=== PATIENT | female | born 1935 | race Caucasian/White ===

== ENCOUNTER 2020-06-09 13:59 | Outpatient (CLI) | payer OTHER, SELFPAY ==
--- NOTE | ~2020-06-09 | MM_ITS ---
EXAMINATION: MM screening jazmín LT w gideon HISTORY: Screening mammogram TECHNIQUE: Craniocaudal and mediolateral oblique 3-D tomosynthesis images were obtained and synthetic 2-D images were generated. CAD analysis was submitted and interpreted. COMPARISON: 04/20/2019 left digital mammogram 04/14/2018, 04/11/2017 bilateral digital screening mammogram examinations BREAST PARENCHYMAL COMPOSITION: There are scattered areas of fibroglandular density. FINDINGS: There are multiple benign calcifications. Arterial calcifications are noted. No suspicious mass or architectural distortion or significant new or developing density is noted. There is no evide nce of suspicious mass, calcification, or architectural distortion to suggest malignancy in either br east. There has been no suspicious interval change. IMPRESSION: 1. No mammographic evidence of malignancy. 2. Recommend routine screening mammography in one year. BI-RADS Category 2: Benign finding(s). Reviewed, dictated and finalized at location A.
== END 2020-06-09 14:00 | disposition home or self-care (01) ==
LOC: ANHIMG 14:02
PROVIDERS: PCP Family Medicine; Visit Provider Internal Medicine Medical Oncology
DX: Z12.31 Encounter for screening mammogram for malignant neoplasm of breast (principal)
CPT/HCPCS: 77063; 77067

== ENCOUNTER 2020-12-01 14:43 | Outpatient (CLI) | payer OTHER, MEDICARE, SELFPAY | END 2020-12-01 14:44 | disposition home or self-care (01) | LOC: ANHCOVIDVC 14:44 | PROVIDERS: PCP Family Medicine | DX: Z23 Encounter for immunization (principal) | CPT/HCPCS: 0001A; 91300 ==

== ENCOUNTER 2020-12-22 14:44 | Outpatient (CLI) | payer OTHER, MEDICARE, SELFPAY | END 2020-12-22 14:45 | disposition home or self-care (01) | LOC: ANHCOVIDVC 14:44 | PROVIDERS: PCP Family Medicine | DX: Z23 Encounter for immunization (principal) | CPT/HCPCS: 0002A; 91300 ==

== ENCOUNTER 2021-06-19 10:32 | Outpatient (CLI) | payer OTHER, SELFPAY ==
--- NOTE | ~2021-06-19 | MM_ITS ---
EXAMINATION: MM screening jazmín LT w gideon HISTORY: Screening mammogram TECHNIQUE: Craniocaudal and mediolateral oblique 3-D tomosynthesis images were obtained and synthetic 2-D images were generated. CAD analysis was submitted and interpreted. COMPARISON: 06/09/2020, 04/20/2019 left digital mammogram examinations BREAST PARENCHYMAL COMPOSITION: There are scattered areas of fibroglandular density. FINDINGS: Scattered benign calcifications. There is no evidence of suspicious mass, calcification, or architectural distortion to suggest malignancy in either breast. There has been no suspicious interv al change. IMPRESSION: 1. No mammographic evidence of malignancy. 2. Recommend routine screening mammography in one year. BI-RADS Category 2: Benign finding(s). Reviewed, dictated and finalized at location A.
== END 2021-06-19 10:33 | disposition home or self-care (01) ==
LOC: ANHIMG 10:36
PROVIDERS: PCP Family Medicine; Visit Provider Internal Medicine Medical Oncology
DX: Z12.31 Encounter for screening mammogram for malignant neoplasm of breast (principal)
CPT/HCPCS: 77063; 77067

== ENCOUNTER 2022-06-23 14:40 | Outpatient (CLI) | payer OTHER, SELFPAY ==
--- NOTE | ~2022-06-23 | MM_ITS ---
EXAMINATION: MM screening jazmín LT w gideon HISTORY: Screening mammogram TECHNIQUE: Craniocaudal and mediolateral oblique 3-D tomosynthesis images were obtained and synthetic 2-D images were generated. CAD analysis was submitted and interpreted. COMPARISON: 06/15/2021, 06/09/2020, 04/20/2019 left screening mammogram examinations BREAST PARENCHYMAL COMPOSITION: There are scattered areas of fibroglandular density. FINDINGS: Status post right mastectomy for breast cancer. Scattered benign calcifications of the left breast. There is no evidence of suspicious mass, calcific ation, or architectural distortion to suggest malignancy in either breast. There has been no suspicio us interval change. IMPRESSION: 1. No mammographic evidence of malignancy. 2. Recommend routine screening mammography in one year. BI-RADS Category 2: Benign finding(s). Reviewed, dictated and finalized at location A.
== END 2022-06-23 14:41 | disposition home or self-care (01) ==
PROVIDERS: PCP Family Medicine; Visit Provider Family Medicine
DX: Z12.31 Encounter for screening mammogram for malignant neoplasm of breast (principal)
CPT/HCPCS: 77063; 77067

== ENCOUNTER 2022-09-14 08:34 | Outpatient (CLI) | payer OTHER, SELFPAY ==
[2022-09-14 09:13] LABS: Hematocrit 45.5 % (37.0-47.0); Mean Corpuscular Hemoglobin 33.1 pg (26-34); Mean Corpuscular Volume 100.4 fl (80-100); Mean Platelet Volume 8.8 fl (7.4-10.4); Platelet Count Result 210 k/mm3 (150-375); Red Blood Count 4.53 M/mm3 (4.2-5.4); Red Cell Distribution Width 13.3 % (11.5-14.5); White Blood Count 6.1 K/mm3 (4.5-10.0)
[2022-09-14 09:13] LABS: Add Urine Microscopic? YES; Appearance Urine Clear (Clear); Bilirubin Urine Negative (Negative); Blood Urine Negative (Negative); Color Urine Light Yellow (Yellow); Glucose Urine UA Negative (Negative); Ketones Urine Negative (Negative); Leukocyte Esterase Ur 1+ LEU/UL (NEGATIVE); Nitrate Urine Negative (Negative); Protein Urine Negative (Negative); Urobilinogen Urine 0.2 mg/dL (<2.0)
[2022-09-14 09:21] LABS: Alanine Aminotransferase 21 U/L (6-35); Albumin Level 4.3 g/dL (3.5-5.1); Alkaline Phosphatase 63 U/L (38-126); Anion Gap 4 mmol/L (8-16); Aspartate Amino Transferase 28 U/L (14-36); Bilirubin,Total 0.8 mg/dL (0.2-1.3); Blood Urea Nitrogen 12 mg/dL (7-17); Calcium 9.5 mg/dL (8.4-10.2); Carbon Dioxide 29 mmol/L (22-30); Chloride 102 mmol/L (98-107); Cholesterol 178 mg/dL (0-200); Estimated Glomerular Filt Rate 60; Glucose 195 mg/dL (65-110); HDL Direct 63 mg/dL; Potassium 4.3 mmol/L (3.4-5.0); Sodium 135 mmol/L (137-145); Triglycerides 99 mg/dL (<150)
[2022-09-14 09:23] LABS: Mucus Urine Rare /lpf; RBC Urine 0-2 /hpf (0-2); Squamous Epithelial Cell Urine Few /hpf (Few); WBC Urine 0-3 /hpf (0-3)
[2022-09-14 09:32] LABS: LDL Cholesterol Direct 79 mg/dL
[2022-09-14 10:17] LABS: Creatinine Urine 76.7 mg/dL
[2022-09-14 10:21] LABS: Microalbumin Urine Random 6.9 mg/L (0-16.7)
[2022-09-14 10:36] LABS: Hemoglobin A1C 6.2 % (<5.7)
== END 2022-09-14 08:35 | disposition home or self-care (01) ==
LOC: ANHLAB 08:35
PROVIDERS: PCP Family Medicine; Visit Provider Family Medicine
DX: R53.83 Other fatigue (principal); E11.9 Type 2 diabetes mellitus without complications; E78.5 Hyperlipidemia, unspecified; I10 Essential (primary) hypertension
CPT/HCPCS: 36415; 80053; 80061; 81001; 82043; 83036; 84443; 85027

== ENCOUNTER 2022-12-19 10:48 | Emergency (ER) | payer OTHER, SELFPAY ==
--- NOTE | ~2022-12-19 | CT_ITS ---
EXAMINATION: CT abdomen pelvis w con INDICATION: Left lower quadrant abdominal pain TECHNIQUE: Computed tomographic images of the abdomen and pelvis were obtained after the administrati on of 100 cc of Omnipaque 350 intravenous contrast. The dose-length product (DLP) was 667.99 mGy-cm. Automated exposure control and iterative reconstruction technique were employed. COMPARISON: 03/06/2014 FINDINGS: Minimal dependent atelectasis is present in the lung bases. The heart size is normal. There are changes of right mastectomy. There is a small sliding hiatal area. Stones are present in the non distended gallbladder. The liver, spleen, pancreas, and adrenal glands are normal. The kidneys are un remarkable. There is calcified atherosclerosis of the aorta and many of the other arteries.. There is colonic diverticulosis. There is wall thickening with inflammatory change in the proximal sigmoid co ginny. There is no evidence of perforation. There are no dilated loops of bowel. There are changes of b ilateral hip arthroplasty. IMPRESSION: 1. Uncomplicated sigmoid diverticulitis. 2. Cholelithiasis without evidence of cholecystitis. Reviewed, dictated and finalized at location A.
[2022-12-19 10:56] VITALS: BP 151/57; PULSE 81; RESP 18; O2SAT 99
[2022-12-19 11:27] LABS: Basophils Absolute Auto 0.1 K/mm3 (0.0-0.1); Basophils Percent Auto 0.5 % (0.2-1.2); Eosinophils Absolute Auto 0.1 K/mm3 (0-0.3); Eosinophils Percent Auto 0.7 % (0-4.4); Hematocrit 43.7 % (37.0-47.0); Hemoglobin 15.1 g/dL (12.0-15.0); Immature Granulocyte Absolute 0.03 K/mm3 (0.00-0.031); Immature Granulocyte Percent A 0.3 % (0-0.5); Lymphocytes Absolute Auto 2.12 K/mm3 (0.9-3.2); Lymphocytes Percent Auto 19.8 % (18.3-44.2); Mean Corpuscular HGB Conc 34.6 g/dl (32-36); Mean Corpuscular Hemoglobin 33.8 pg (26-34); Mean Corpuscular Volume 97.8 fl (80-100); Mean Platelet Volume 8.8 fl (7.4-10.4); Monocytes Absolute Auto 1.1 K/mm3 (0.1-0.6); Monocytes Percent Auto 9.9 % (2.6-8.5); Neutrophils Absolute Auto 7.4 K/mm3 (1.3-6.7); Neutrophils Percent Auto 68.8 % (45.5-73.1); Platelet Count Result 212 k/mm3 (150-375); Red Blood Count 4.47 M/mm3 (4.2-5.4); Red Cell Distribution Width 13.3 % (11.5-14.5); White Blood Count 10.7 K/mm3 (4.5-10.0)
[2022-12-19 11:37] LABS: Alanine Aminotransferase 19 U/L (6-35); Albumin Level 4.4 g/dL (3.5-5.1); Alkaline Phosphatase 59 U/L (38-126); Anion Gap 7 mmol/L (8-16); Aspartate Amino Transferase 22 U/L (14-36); Bilirubin,Total 2.2 mg/dL (0.2-1.3); Blood Urea Nitrogen 13 mg/dL (7-17); Calcium 9.6 mg/dL (8.4-10.2); Carbon Dioxide 24 mmol/L (22-30); Chloride 104 mmol/L (98-107); Estimated CRCL calculation 38 ml/min; Estimated Glomerular Filt Rate > 60; Glucose 167 mg/dL (65-110); Lipase 101 U/L (23-300); Potassium 4.1 mmol/L (3.4-5.0); Sodium 135 mmol/L (137-145)
[2022-12-19 12:00] VITALS: BP 154/74; PULSE 73; RESP 16; O2SAT 99
[2022-12-19 12:29] LABS: Appearance Urine Cloudy (Clear); Bacteria Urine 1+ /hpf; Bilirubin Urine Negative (Negative); Blood Urine Trace (Negative); Color Urine Dark Yellow (Yellow); Glucose Urine UA Negative (Negative); Ketones Urine Trace mg/dL (Negative); Leukocyte Esterase Ur 2+ LEU/UL (Negative); Nitrate Urine Negative (Negative); Protein Urine Trace mg/dL (Negative); Specific Grav Ur 1.017 (1.001-1.035); Squamous Epithelial Cell Urine Many /hpf (Few); pH Urine 6.5 (5.0-9.0)
[2022-12-19 12:32] LABS: Add Urine Microscopic? YES
[2022-12-19] MEDS: fentaNYL CITRATE INJ (*CRX) 100 MCG/2 ML VIAL 50 MCG IV PUSH (12:52)
--- NOTE | 2022-12-19 13:07 | ED.ABDPAIN ---
HPI - Abdominal Pain General Chief Complaint: Abdominal Pain Stated Complaint: abd pain Time Seen by Provider: 12/19/22 11:59 History of Present Illness HPI narrative: This is an 87-year-old female with past medical history of hypertension and anxiety, presents the emergency department complaining of left-sided abdominal pain for the past day. She states the pain began last night. At maximum it was rated 10/10 and described as cramping and sharp, occurring in waves. She states it initially felt as though it is in the flank and appears to be moving towards the anterior abdomen. She denies associated fever, chills, nausea or vomiting or bleeding from any source. Related Data Allergies Allergy/AdvReac Type Severity Reaction Status Date / Time adhesive tape Allergy Unknown Rash Verified 12/21/22 07:38 codeine Allergy Unknown Headache Verified 12/21/22 07:38 morphine Allergy Unknown Headache Verified 12/21/22 07:38 Review of Systems Review of Systems: CONSTITUTIONAL: Denies fever, chills, or sweats. CARDIOVASCULAR: Denies chest pain, palpitations, or edema. RESPIRATORY: Denies cough or dyspnea. GASTROINTESTINAL: Left-sided abdominal pain denies nausea, vomiting, or diarrhea. GENITOURINARY: Denies dysuria or hematuria. SKIN: Denies rash or itching. MUSCULOSKELETAL: Denies back pain, joint pain, or myalgia. NEUROLOGIC: Denies headache, numbness, dizziness, or weakness. PSYCHIATRIC: Denies anxiety or depression. [facility] Past Medical History Medical History History of breast cancer Social History Social History Smoking status: Never smoker Second hand tobacco smoke exposure: No Alcohol intake: current Drinks per week: 10 Substance use: never Substance use type: does not use Living arrangements: with family Occupation/Education: retired Gender identity (if verbalized by the patient): Female Exam Narrative: GENERAL: Well-appearing, well-nourished, and in no acute distress. HEAD: Normocephalic, atraumatic. EYES: PERRLA and EOMI. ENT: Nares clear, no rhinorrhea or epistaxis. Mucous membranes moist. Oropharynx without tonsillar hypertrophy exudate or other lesions. CHEST: Clear to auscultation. No respiratory distress. No wheezes rales or rhonchi HEART: Regular rate and rhythm. No murmur heard. Normal peripheral pulses. ABDOMEN: Soft, tender to palpation in the left lower quadrant without rebound or guarding, nondistended, normal active bowel sounds. No CVA tenderness to palpation EXTREMITIES: Normal range of motion. No edema. SKIN: Warm, dry, no rash. NEURO: No focal deficits. Alert and oriented x3. PSYCH: Normal mood and affect. Course Course Emergency Course: 14:30 - CT demonstrates sigmoid diverticulitis with out abscess or perforation. On reevaluation, the patient states her pain is returning but is still manageable. White blood cell count within normal limits at 9.8. Chemistries demonstrate mild hyponatremia at 137 but are otherwise unremarkable. UA demonstrates small amount of RBCs with epithelial cells. Shared decision making conversation had with the patient. We discussed treatment options including admission versus oral medications at home and close primary care follow-up. The patient is comfortable with discharge, oral antibiotics and pain management. Discussed return and emergent precautions including signs/symptoms of sepsis and acute abdomen. The patient voiced understanding is comfortable with the plan. All questions answered to her satisfaction. Vital Signs Vital signs: Vital Signs Pulse Rate 81 12/19/22 10:56 Respiratory Rate 18 12/19/22 10:56 Blood Pressure 151/57 H 12/19/22 10:56 Pulse Oximetry 99 12/19/22 10:56 Pulse Rate 60 12/19/22 15:06 Respiratory Rate 18 12/19/22 15:06 Blood Pressure 121/61 12/19/22 15:06 Pulse Oximetry 99 12/19/22 15:06
[2022-12-19 13:16] LABS: Basophils Percent Auto 0.4 % (0.2-1.2); Eosinophils Percent Auto 0.4 % (0-4.4); Hematocrit 42.3 % (37.0-47.0); Hemoglobin 14.6 g/dL (12.0-15.0); Immature Granulocyte Absolute 0.03 K/mm3 (0.00-0.031); Immature Granulocyte Percent A 0.3 % (0-0.5); Lymphocytes Percent Auto 17.4 % (18.3-44.2); Mean Corpuscular HGB Conc 34.5 g/dl (32-36); Mean Corpuscular Volume 98.4 fl (80-100); Mean Platelet Volume 9.1 fl (7.4-10.4); Monocytes Absolute Auto 1.1 K/mm3 (0.1-0.6); Monocytes Percent Auto 10.8 % (2.6-8.5); Neutrophils Absolute Auto 6.9 K/mm3 (1.3-6.7); Neutrophils Percent Auto 70.7 % (45.5-73.1); Platelet Count Result 195 k/mm3 (150-375); Red Cell Distribution Width 13.2 % (11.5-14.5); White Blood Count 9.8 K/mm3 (4.5-10.0)
[2022-12-19] MEDS: oxyCODONE/ACETAMINOPHEN (*CRX) 5-325 MG TABLET 1 TABLET PO (15:02)
[2022-12-19 15:06] VITALS: BP 121/61; PULSE 60; RESP 18; O2SAT 99
== END 2022-12-19 15:07 | disposition home or self-care (01) ==
PROVIDERS: Emergency Medicine; Emergency Provider Preventive Medicine Aerospace Medicine; PCP Family Medicine
DX: K57.32 Diverticulitis of large intestine without perforation or abscess without bleeding (principal); I10 Essential (primary) hypertension; K80.20 Calculus of gallbladder without cholecystitis without obstruction
CPT/HCPCS: 36415; 74177; 80053; 81001; 83690; 85025; 87086; 87088; 96374; 99284; A9270; J3010; Q9967

== ENCOUNTER 2023-07-27 13:54 | Outpatient (CLI) | payer OTHER, SELFPAY ==
--- NOTE | ~2023-07-27 | MM_ITS ---
EXAMINATION: MM screening jazmín LT w gideon HISTORY: Screening left mammogram, history of right mastectomy TECHNIQUE: Craniocaudal and mediolateral oblique 3-D tomosynthesis images were obtained and synthetic 2-D images were generated. CAD analysis was submitted and interpreted. COMPARISON: 06/23/2022, 06/19/2021, 06/09/2020 BREAST PARENCHYMAL COMPOSITION: There are scattered areas of fibroglandular density. FINDINGS: Scattered benign-appearing calcifications are present. No suspicious mass, calcification, o r architectural distortion are identified to suggest malignancy. There has been no suspicious interva l change. IMPRESSION: 1. No mammographic evidence of malignancy. 2. Recommend routine screening mammography while the patient remains in good health. BI-RADS Category 2: Benign finding(s). Reviewed, dictated and finalized at location A. IMPRESSION: 1. No mammographic evidence of malignancy. 2. Recommend routine screening mammography while the patient remains in good he alth. BI-RADS Category 2: Benign finding(s).
== END 2023-07-27 13:55 | disposition home or self-care (01) ==
LOC: ANHIMG 13:56
PROVIDERS: PCP Family Medicine; Visit Provider Family Medicine
DX: Z12.31 Encounter for screening mammogram for malignant neoplasm of breast (principal)
CPT/HCPCS: 77063; 77067

== ENCOUNTER → 2023-08-31 11:08 | Outpatient (CLI) | payer OTHER, SELFPAY ==
--- NOTE | ~2023-08-31 | DEXA_ITS ---
Bone Density Report Name: WM MURRIETA Age: 87 Sex: Female Ethnicity: White Date of : 1935 Indication: postmenopausal; screening for osteoporosis; height loss; hysterectomy; Referring Provider: [address] Study: Bone densitometry was performed. Exam Date: August 31, 2023 Accession number: [id number] Bone Density: Region BMD T-score Z-score Classification AP Spine (L1, L4) 1.008 -0.3 2.6 Normal World Health Organization criteria for BMD impression classify patients as: Normal (T-score at or above -1.0), Osteopenia (T-score between -1.0 and -2.5), or Osteoporosis (T-score at or below -2.5). Previous Exams: Region Exam Age BMD T-score BMD Change BMD Change Date g/cm2 vs Baseline vs Previous AP Spine(L1, L4) 08/31/2023 87 1.008 -0.3 -0.088 0.003 05/15/2007 71 1.004 -0.3 -0.091 -0.091 10/03/2003 67 1.095 0.5 *Denotes significance at 95% confidence level, LSC for AP Spine = 0.022 g/cm2 Clinical Information Provided by Patient: Has the following medical conditions: Hysterectomy Patient maximum height was 65 Menopause Age: 41 No regular weight bearing exercise Drinks caffeinated beverages Onset of menses at age 15 Number of children 8 Impression: The patient has normal bone mass. No significant bone loss was observed. Discussion: LOW RISK OF FRACTURE; BONE DENSITY IS WELL ABOVE THE MINIMUM DESIRABLE LEVEL AND ABOVE AVERAGE FOR AGE AND SEX AT ALL SKELETAL SITES TESTED. This person's bone density is above expected limits for age and sex. This is rarely clinically significant, but should be pursued if there are significant musculoskeletal complaints. The patient should follow a healthful lifestyle (good nutrition with adequate calcium and vitamin D, and appropriate weight-bearing exercise). Follow-Up: Consider repeating this study in 5 years or sooner if there is some new clinical indication. Reported by: [facility] on 08/31/2023 11:16:00 AM. Reviewed, dictated and finalized at location ANaomi WHITEHEAD
== END ==
PROVIDERS: PCP Family Medicine; Visit Provider Family Medicine
DX: Z78.0 Asymptomatic menopausal state (principal)
CPT/HCPCS: 77080

== ENCOUNTER 2023-11-21 08:21 | Emergency (ER) | payer OTHER, SELFPAY ==
[2023-11-21] VITALS (41 sets, daily range): BP systolic 97–155; BP diastolic 59–134; PULSE 61–86; RESP 17–31; TEMP 36.4–36.6; O2SAT 92–99
--- NOTE | ~2023-11-21 | CT_ITS ---
EXAMINATION: CT thoracic spine wo con DATE: 11/21/2023 09:01 INDICATION: Bilateral shoulder pain. Fall. TECHNIQUE: Computed tomography (CT) of the thoracic spine was performed without intravenous contrast. Automated exposure control and iterative reconstruction technique were employed. The dose-length pro duct was 715.42 mGy-cm. COMPARISON: None FINDINGS: Calcified right hilar and mediastinal lymph nodes are consistent with old granulomatous dis ease. There is a small sliding hiatal hernia. Cardiomegaly is noted. There are coronary artery calcif ications. There is 8 degrees dextrocurvature of upper thoracic spine and 7 degrees levocurvature of l ower thoracic spine. There is kyphosis of thoracic spine. There is mild chronic anterior wedging of T 8-T10 vertebral bodies. There are Schmorl's nodes at multiple levels. There is mildly decreased disc height at multiple levels. There is moderately decreased disc height at T7-T8 and T8-T9 and severely decreased disc height at T10-T11 and T11-T12. There are bridging endplate osteophytes from T4 to T10, consistent with diffuse idiopathic skeletal hyperostosis (DISH). There is mild central canal stenosi s at T10-T11 and T11-T12. There is multilevel facet joint osteoarthritis, severe in upper thoracic sp ine. There is ankylosis of the facet joints at T3-T4 bilaterally and at T7-T8 on the left. There is m ultilevel mild neural foraminal stenosis. IMPRESSION: 1. No fracture. 2. Severe thoracic spondylosis. 3. DISH. 4. Small sliding hiatal hernia. Reviewed, dictated and finalized at location A. [employer]
--- NOTE | ~2023-11-21 | CT_ITS ---
EXAMINATION: CT brain wo con INDICATION: Headache COMPARISON: None TECHNIQUE: Standard unenhanced head CT. The dose-length product (DLP) was 681.00 mGy-cm. The mA was a djusted according to patient size. Iterative reconstruction technique was employed. FINDINGS: No acute intraparenchymal hemorrhage. No evidence of mass lesion. No evidence of acute infa rction. 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 There is mild periventricular and subcortical hypodensity probably related to small vessel ischemic disease. There is mild prominence o f the sulci and ventricles related to cerebral atrophy. Intracranial calcified cerebral atheroscleros is is noted. No extra-axial collections. No mass effect or midline shift. Changes in the globes are l ikely from ocular lens surgery. There is a small right mastoid effusion. IMPRESSION: 1. No acute intracranial abnormality. 2. Age related findings. Reviewed, dictated and finalized at location B. [employer]
--- NOTE | ~2023-11-21 | CT_ITS ---
EXAMINATION: CT cervical spine wo con DATE: 11/21/2023 09:01 INDICATION: Neck injury. TECHNIQUE: Computed tomography (CT) of the cervical spine was performed without intravenous contrast. Automated exposure control and iterative reconstruction technique were employed. The dose-length pro duct was 165.77 mGy-cm. COMPARISON: None FINDINGS: There is a 12 mm nodule in right thyroid lobe, likely not clinically significant. There is 14 degrees levoscoliosis of cervical spine. Vertebral body heights are normal. There is mildly decrea sed disc height at C5-C6 and moderately decreased disc height at C6-C7. The following disc levels are specifically discussed: C2-C3: There is no uncovertebral joint osteoarthritis. There is moderate right and mild left facet nirmal int osteoarthritis. There is no neural foraminal stenosis. There is no central canal stenosis. C3-C4: There is no uncovertebral joint osteoarthritis. There is moderate right and severe left facet joint osteoarthritis. There is mild left neural foraminal stenosis. There is no central canal stenosi s. C4-C5: There is no uncovertebral joint osteoarthritis. There is severe bilateral facet joint osteoart hritis. There is mild bilateral neural foraminal stenosis. There is no central canal stenosis. C5-C6: There is severe bilateral uncovertebral joint osteoarthritis. There is severe bilateral facet joint osteoarthritis. There is mild bilateral neural foraminal stenosis. There is mild central canal stenosis. C6-C7: There is moderate right and severe left uncovertebral joint osteoarthritis. There is severe bi lateral facet joint osteoarthritis. There is mild bilateral neural foraminal stenosis. There is mild central canal stenosis. C7-T1: There is mild bilateral uncovertebral joint osteoarthritis. There is severe bilateral facet nirmal int osteoarthritis. There is mild bilateral neural foraminal stenosis. There is no central canal sten osis. IMPRESSION: 1. No fracture. 2. Moderate cervical spondylosis. 3. Cervical levoscoliosis. Reviewed, dictated and finalized at location A. [employer]
--- NOTE | 2023-11-21 08:39 | ED.GENADULT ---
HPI - General Adult General Chief complaint: Extremity Injury, Upper Stated complaint: b/l shoulder pain Time Seen by Provider: 11/21/23 08:22 History of Present Illness HPI narrative: 88-year-old female presented to the emergency department for evaluation of head neck and shoulder pain. The patient states that she was at a restaurant approximately 1 month ago when she pushed her chair back and instead of pushing herself away from the table she fell backwards. Patient states that she has had worsening head neck and shoulder pain over the course of the last month. Patient was not evaluated the time of the injury and has not contacted her primary care physician for follow-up. Patient has been taking ibuprofen for pain control. Patient reports that the pain in her neck back and shoulders has worsened to the point where she cannot control it. Patient arrived to the emergency department by EMS. Related Data Allergies Allergy/AdvReac Type Severity Reaction Status Date / Time adhesive tape Allergy Unknown Rash Verified 11/21/23 08:38 codeine Allergy Unknown Headache Verified 11/21/23 08:38 morphine Allergy Unknown Headache Verified 11/21/23 08:38 lidocaine Allergy Unknown Verified 11/21/23 08:38 Review of Systems Review of Systems: All systems reviewed & are unremarkable except as noted in HPI and below PMFSH Past Medical History Medical History History of breast cancer Social History Social History Smoking status: Never smoker Second hand tobacco smoke exposure: No Alcohol intake: current Drinks per week: 10 Substance use: never Substance use type: does not use Living arrangements: with family Occupation/Education: retired Gender identity (if verbalized by the patient): Female Sexual Orientation (if Verbalized by the Patient): Straight or Heterosexual Exam Narrative: APPEARANCE: Uncomfortable with HEAD: normocephalic, atraumatic. EYES: PERRLA/EOMI, conjunctivae clear. NOSE: Normal no drainage EARS:TMS clear with good light reflex. THROAT: Pharynx clear, no exudate. NECK: Supple. No adenopathy, no masses. RESPIRATORY: Airway patent, respirations nonlabored. Clear to auscultation bilaterally, no rales, rhonchi, wheezing. CARDIOVASCULAR: Regular rate and rhythm without murmurs rubs or gallops. ABDOMINAL: Soft, nontender, nondistended, normal bowel sounds MUSCULOSKELETAL: Tenderness to posterior head neck thoracic spine and bilateral shoulders NEURO: Alert. Cranial nerves II through XII intact. Grossly intact SKIN: Warm, dry. Normal Color Course Course Emergency Course: Patient did feel improved with treatment. Patient and family are comfortable with plan for discharge and close follow-up. Vital Signs Vital signs: Vital Signs Temperature 97.6 F 11/21/23 08:25 Pulse Rate 83 11/21/23 08:25 Respiratory Rate 20 11/21/23 08:25 Blood Pressure 155/134 H 11/21/23 08:25 Pulse Oximetry 97 11/21/23 08:25 Oxygen Delivery Room Air 11/21/23 08:25 Temperature 97.8 F 11/21/23 15:15 Pulse Rate 74 11/21/23 15:15 Respiratory Rate 20 11/21/23 15:15 Blood Pressure 129/70 11/21/23 15:15 Pulse Oximetry 96 11/21/23 15:15 Oxygen Delivery Room Air 11/21/23 08:25 Medical Decision Making MDM Narrative Medical decision making narrative: 88-year-old female presenting to the ED for evaluation worsening head neck back shoulder pain after a fall 1 month ago. Patient was provided medications for pain control. Imaging head neck spine were ordered. Patient and family are updated on the plan for treatment and workup. Patient is afebrile does have a minor leukocytosis of 10.6. Patient has a stable hemoglobin. No acute abnormalities on the patient's CMP patient's CK was not elevated. Patient had negative CTs of head cervical spine and thoracic spine. Patient d
[2023-11-21] MEDS: CYCLOBENZAPRINE HCL 10 MG TABLET PO (08:44)
[2023-11-21] MEDS: HYDROcodone/acetaminophen (*CRX) 5-325 MG TABLET 1 TAB PO (08:44)
--- NOTE | 2023-11-21 08:45 | PC.NURSE ---
Pt to CT via stretcher at this time
[2023-11-21 09:22] LABS: Basophils Absolute Auto 0.1 K/mm3 (0.0-0.1); Basophils Percent Auto 0.6 % (0.2-1.2); Eosinophils Absolute Auto 0.1 K/mm3 (0-0.3); Eosinophils Percent Auto 0.6 % (0-4.4); Hematocrit 40.3 % (37.0-47.0); Hemoglobin 13.8 g/dL (12.0-15.0); Immature Granulocyte Absolute 0.06 K/mm3 (0.00-0.031); Immature Granulocyte Percent A 0.6 % (0-0.5); Lymphocytes Absolute Auto 0.94 K/mm3 (0.9-3.2); Lymphocytes Percent Auto 8.9 % (18.3-44.2); Mean Corpuscular HGB Conc 34.2 g/dl (32-36); Mean Corpuscular Hemoglobin 32.5 pg (26-34); Mean Platelet Volume 8.6 fl (7.4-10.4); Monocytes Percent Auto 9.5 % (2.6-8.5); Neutrophils Absolute Auto 8.5 K/mm3 (1.3-6.7); Neutrophils Percent Auto 79.8 % (45.5-73.1); Platelet Count Result 336 k/mm3 (150-375); Red Blood Count 4.24 M/mm3 (4.2-5.4); Red Cell Distribution Width 11.9 % (11.5-14.5); White Blood Count 10.6 K/mm3 (4.5-10.0)
[2023-11-21] MEDS: fentaNYL CITRATE INJ (*CRX) 100 MCG/2 ML VIAL 50 MCG IV PUSH (09:59)
[2023-11-21 10:23] LABS: Alanine Aminotransferase 16 U/L (6-35); Albumin Level 3.5 g/dL (3.5-5.1); Alkaline Phosphatase 66 U/L (38-126); Anion Gap 5 mmol/L (8-16); Aspartate Amino Transferase 23 U/L (14-36); Bilirubin,Total 1.2 mg/dL (0.2-1.3); Blood Urea Nitrogen 12 mg/dL (7-17); Calcium 9.3 mg/dL (8.4-10.2); Carbon Dioxide 25 mmol/L (22-30); Chloride 100 mmol/L (98-107); Creatine Kinase < 20 U/L (30-135); Estimated CRCL calculation 48 ml/min; Estimated Glomerular Filt Rate > 60; Glucose 190 mg/dL (65-110); Potassium 4.1 mmol/L (3.4-5.0); Sodium 130 mmol/L (137-145)
[2023-11-21] MEDS: LORazepam INJ (*CRX) 2 MG/ML VIAL 1 MG IV PUSH (10:47)
== END 2023-11-21 15:32 | disposition home or self-care (01) ==
PROVIDERS: Emergency Provider Emergency Medicine; PCP Family Medicine
DX: S29.012A Strain of muscle and tendon of back wall of thorax, initial encounter (principal); M25.512 Pain in left shoulder; M25.511 Pain in right shoulder; Z85.3 Personal history of malignant neoplasm of breast; M47.812 Spondylosis without myelopathy or radiculopathy, cervical region; M47.814 Spondylosis without myelopathy or radiculopathy, thoracic region; M48.10 Ankylosing hyperostosis [Forestier], site unspecified; K44.9 Diaphragmatic hernia without obstruction or gangrene; W07.XXXA Fall from chair, initial encounter
CPT/HCPCS: 36415; 70450; 72125; 72128; 80053; 82550; 85025; 96374; 96375; 99284; A9270; J2060; J3010

== ENCOUNTER 2023-12-09 11:15 | Outpatient (RCR) | payer OTHER, SELFPAY ==
[2023-11-25 12:35] VITALS: BP_SYST 110; BP_SYST 90
--- NOTE | 2023-11-25 14:31 | OPREHPOC ---
Outpatient Therapy Plan of Care This is a Multidisciplinary Plan of Care that may contain components documented by all disciplines (PT, OT, and ST.) PT Problem 1 PT Problem #1 Knowledge Deficit PT Goal 1 Goal 1* indep with HEP 2* correct posture of shoulders with exercises PT Problem 2 PT Problem #2 Pain PT Goal 1 Goal decrease pain in both shoulders, to increase use of UE's for self care and home tasks: 1* R shoulder pain 3/10 at worst 2* L shoulder pain 2//10 at worst 3* self assessment Quick Dash self rating of 20% limitation in activity level PT Problem 3 PT Problem #3 Impaired Strength PT Goal 1 Goal increase strength of R and L shoulder, to improve use of arms with reaching into cabinets, cleaning home, cooking: standing active x 5 reps: 1* R flexion 130' 2* R abduction 90' 3* L flexion 130' 4* L abduction 100'
--- NOTE | 2023-11-25 14:31 | PTOPEVAL1 ---
Assessment and note entered by Laurie Bragg, PT Evaluation Information Assessment Status Evaluation Diagnosis pain in R and L shoulder, gait disturbance Onset Sep 2023 Subjective Information at restaurant, sitting in a tall chair, went to get up and chair went out from under her- fell forward and landed on both extended arms; pain in shoulders since; 11-21-23 could not get up out of her chair, son called ER, had CT scans of shoulders and trunk, and all tests were negative; shoulders are better today and can move a little more; can use arms but hurt and feel bruised. prior to fall--had full motion of shoulders; problems reaching up into cabinets; Activity: live alone; local family available if need assist; drives and does her shopping, cleaning and cooking; GOAL: do things with arms and not have pain, regular home chores; Reported Pain Level Pain Score Self Report Additional Pain Score Comments pain range in the past few days of both shoulders 2-5/10, but R tends to hurt more; achy pain in lateral upper humerus; R hand dominant increase pain: using arms decrease pain: muscle relaxer, pain meds and steroid pack ordered when went to ER 4 days ago-- they are helping; hot shower have not used heat/ice- instruct on PRN use with sleeping, able to sleep through the night, but some pain when wake up in AM Assessment PT Clinical Summary Abbie has the diagnosis of R and L shoulder pain . She reports onset after falling from standing, onto extended arms. Testing was negative. Pain has decreased with recent meds. She lives alone and had full motion and strength of her shoulders to do her self care and home tasks. Self assessment with Quick DASH is 41% limitation in activity level. With the evaluation: decreased R and L shoulder strength in all motions and decreased flexion and abduction ranges, R> L; poor standing position with forward head and rounded shoulders; tightness over both upper traps.
--- NOTE | 2023-12-13 17:33 | PCPTNOTE ---
Patient cancelled secondary to MRI scheduled.
--- NOTE | 2023-12-20 13:08 | PTOPDC ---
Assessment and note entered by Laurie Bragg, PT Evaluation Information Assessment Status Discharge - Pt Not Present Diagnosis pain in R and L shoulder, gait disturbance Onset Sep 2023 Assessment PT Clinical Summary Abbie has received 3 PT sessions. She then called last week and canceled all of her therapy appointments, stated she was having some other treatments and not able to do therapy at this time. Discharge PT. The goals were not addressed. Plan of Care PT Services Indicated No
== END 2023-12-20 15:08 | disposition home or self-care (01) ==
LOC: ANHPT 11:15
PROVIDERS: PCP Family Medicine; Visit Provider Family Medicine
DX: M25.511 Pain in right shoulder (principal); M25.512 Pain in left shoulder; R26.89 Other abnormalities of gait and mobility; R26.9 Unspecified abnormalities of gait and mobility
CPT/HCPCS: 97110; 97140; 97162; 97530

== ENCOUNTER 2023-12-13 08:52 | Outpatient (CLI) | payer OTHER, SELFPAY ==
--- NOTE | ~2023-12-13 | XR_ITS ---
Right Shoulder Technique: AP and scapular Y views were obtained. Clinical History: Pain Findings: No fracture or dislocation is seen. Osseous alignment is anatomic. There is moderate glenoh umeral joint degenerative change and moderate AC joint degenerative change.. Soft tissues are unremar kable. Impression: Moderate degenerative changes, as above. Reviewed, dictated and finalized at location . Impression: Moderate degenerative changes, as above.
--- NOTE | ~2023-12-13 | XR_ITS ---
Left Shoulder Technique: AP and scapular Y views were obtained. Clinical History: Pain Findings: No fracture or dislocation is seen. Osseous alignment is anatomic. There is moderate glenoh umeral joint degenerative change, and moderate AC joint degenerative change. Inferior humeral head sp ur present.. Soft tissues are unremarkable. Impression: Moderate degenerative changes, as above. Reviewed, dictated and finalized at location . Impression: Moderate degenerative changes, as above.
== END 2023-12-13 08:53 ==
LOC: MICIMG 08:53
PROVIDERS: PCP Family Medicine; Visit Provider Physician Assistant Medical
DX: M19.012 Primary osteoarthritis, left shoulder (principal); M19.011 Primary osteoarthritis, right shoulder
CPT/HCPCS: 73030

== ENCOUNTER 2024-08-14 20:35 | Observation (INO) | payer OTHER, SELFPAY ==
[2024-08-14] VITALS (12 sets, daily range): BP systolic 107–190; BP diastolic 68–140; PULSE 57–86; RESP 16–36; TEMP 36.1; O2SAT 80–100
--- NOTE | ~2024-08-14 | CT_ITS ---
EXAMINATION: CT abdomen pelvis w con DATE: 08/14/2024 22:46 INDICATION: Right lower quadrant abdominal pain. TECHNIQUE: Computed tomography (CT) of the abdomen and pelvis was performed with 100 mL Omnipaque 350 intravenous contrast. Automated exposure control and iterative reconstruction technique were employe d. The dose-length product was 433.86 mGy-cm. COMPARISON: CT abdomen and pelvis 12/19/2022 FINDINGS: The visualized portions of the lung bases demonstrate mild atelectasis. There is peripheral scarring in anterior right lung, likely radiation fibrosis. No pleural effusion. The heart size is n ormal. No pericardial effusion. There are coronary artery calcifications. There is a 9.3 x 2.0 cm mas s in right breast, likely scarring and seroma. There is a small sliding hiatal hernia. The liver and spleen are normal. There are gallstones in the gallbladder, which is normal in size. The pancreas and adrenal glands are normal. There is an infarct in right kidney. Left kidney is normal. There is dive rticulosis of the colon without evidence of diverticulitis. There are no dilated loops of bowel. The appendix is normal. There are widespread arterial calcifications. There are no pathologically enlarge d lymph nodes. There is no free intraperitoneal fluid. There are bilateral hip arthroplasties. There is severe lumbar spondylosis. There are chronic fractures of L2 and L3 vertebral bodies. IMPRESSION: 1. Infarct in right kidney. Reviewed, dictated and finalized at location A. NCE AND HAIRSPRING ASSEMBLER IMPRESSION: 1. Infarct in right kidney.
--- NOTE | ~2024-08-14 | US_ITS ---
EXAMINATION: US venous doppler [facility] DATE: 08/16/2024 12:19 INDICATION: Abdominal pain. TECHNIQUE: Grayscale ultrasound images without and with compression and Doppler ultrasound images of the bilateral lower extremity veins were obtained. COMPARISON: None. FINDINGS: The visualized portions of right common femoral vein, profunda (deep) femoral vein, femoral vein, pop liteal vein, peroneal veins, posterior tibial veins, and greater saphenous vein outflow are patent. The visualized portions of left common femoral vein, profunda femoral vein, femoral vein, popliteal v ein, peroneal veins, posterior tibial veins, and greater saphenous vein outflow are patent. IMPRESSION: 1. No deep venous thrombosis. Reviewed, dictated and finalized at location A. F TECHNOLOGIST
--- NOTE | ~2024-08-14 | CT_ITS ---
EXAMINATION: CTA abdomen pelvis DATE: 08/14/2024 23:29 INDICATION: Right kidney infarct. TECHNIQUE: Computed tomographic angiography (CTA) of the abdomen and pelvis was performed with 100 mL Omnipaque-350 intravenous contrast. Automated exposure control and iterative reconstruction techniqu e were employed. The dose-length product was 379.75 mGy-cm. Maximum intensity projection 3D-reconstru ctions of the aorta and other arteries were constructed by the technologist on a separate workstation . COMPARISON: CT abdomen and pelvis 08/14/2024 FINDINGS: The visualized portions of the lung bases demonstrate mild atelectasis. There is peripheral scarring in anterior right lung, likely radiation fibrosis. No pleural effusion. The heart size is normal. No pericardial effusion. There are coronary artery calcifications. There is a 9 .3 x 2.0 cm mass in right breast, likely scarring and seroma. There is a small sliding hiatal hernia. The liver and spleen are normal. There are gallstones in the gallbladder, which is normal in size. T he pancreas and adrenal glands are normal. There is an infarct in right kidney. Left kidney is normal . There is diverticulosis of the colon without evidence of diverticulitis. There are no dilated loops of bowel. The appendix is normal. There are widespread arterial calcifications. There is no signific ant stenosis of celiac axis, superior mesenteric artery, the left renal arteries, or inferior mesente mary artery. There is moderate stenosis of origin of right renal artery. There are no pathologically e nlarged lymph nodes. There is no free intraperitoneal fluid. There are bilateral hip arthroplasties. There is severe lumbar spondylosis. There are chronic fractures of L2 and L3 vertebral bodies. IMPRESSION: 1. Infarct in right kidney. 2. 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 Reviewed, dictated and finalized at location A. S ROLLING MACHINE OPERATOR
[2024-08-14 20:53] LABS: Basophils Percent Auto 0.5 % (0.2-1.2); Eosinophils Absolute Auto 0.1 K/mm3 (0-0.3); Eosinophils Percent Auto 1.2 % (0-4.4); Hematocrit 42.9 % (37.0-47.0); Hemoglobin 14.6 g/dL (12.0-15.0); Immature Granulocyte Absolute 0.05 K/mm3 (0.00-0.031); Immature Granulocyte Percent A 0.8 % (0-0.5); Lymphocytes Absolute Auto 2.11 K/mm3 (0.9-3.2); Lymphocytes Percent Auto 31.7 % (18.3-44.2); Mean Corpuscular Hemoglobin 32.6 pg (26-34); Mean Corpuscular Volume 95.8 fl (80-100); Mean Platelet Volume 8.9 fl (7.4-10.4); Monocytes Absolute Auto 0.6 K/mm3 (0.1-0.6); Monocytes Percent Auto 9.2 % (2.6-8.5); Neutrophils Absolute Auto 3.8 K/mm3 (1.3-6.7); Neutrophils Percent Auto 56.6 % (45.5-73.1); Platelet Count Result 271 k/mm3 (150-375); Red Blood Count 4.48 M/mm3 (4.2-5.4); Red Cell Distribution Width 11.9 % (11.5-14.5); White Blood Count 6.7 K/mm3 (4.5-10.0)
[2024-08-14 21:04] LABS: Add Urine Microscopic? YES; Appearance Urine Clear (Clear); Bacteria Urine None Seen /hpf; Bilirubin Urine Negative (Negative); Blood Urine Negative (Negative); Color Urine Yellow (Yellow); Glucose Urine UA Negative (Negative); Ketones Urine Negative (Negative); Leukocyte Esterase Ur Trace LEU/UL (Negative); Nitrate Urine Negative (Negative); Non Pathogenic Casts 0-2; Protein Urine Negative (Negative); RBC Urine 0-2 /hpf (0-2); Specific Grav Ur 1.016 (1.001-1.035); Squamous Epithelial Cell Urine None Seen /hpf (Few); Urobilinogen Urine 0.2 mg/dL (<2.0); WBC Urine 0-5 /hpf (0-3)
[2024-08-14 21:29] LABS: Alanine Aminotransferase 26 U/L (6-35); Albumin Level 4.6 g/dL (3.5-5.1); Alkaline Phosphatase 76 U/L (38-126); Anion Gap 8 mmol/L (4-12); Aspartate Amino Transferase 41 U/L (14-36); Bilirubin,Total 0.7 mg/dL (0.2-1.3); Blood Urea Nitrogen 11 mg/dL (7-17); Calcium 10.1 mg/dL (8.4-10.2); Carbon Dioxide 27 mmol/L (22-30); Chloride 101 mmol/L (98-107); Estimated CRCL calculation 42 ml/min; Estimated Glomerular Filt Rate > 60; Glucose 134 mg/dL (65-110); Lipase 134 U/L (23-300); Potassium 3.9 mmol/L (3.4-5.0); Sodium 136 mmol/L (137-145)
--- NOTE | 2024-08-14 21:45 | ED_ITS ---
HPI - Abdominal Pain General Chief Complaint: Abdominal Pain <Ju Monroy PA-C - Last Filed: 08/15/24 01:41> Stated Complaint: lower abd. pain radiates to back <Ju Monroy PA-C - Last Filed: 08/15/24 01:41> Time Seen by Provider: 08/14/24 21:13 <Ju Monroy PA-C - Last Filed: 08/15/24 01:41> History of Present Illness HPI narrative: 88-year-old female with history of type 2 diabetes, hyperlipidemia, hypertension, breast cancer in remission for approximately 7 years, bilateral mastectomy presents emergency department for right lower quadrant abdominal pain that started today, worsening this afternoon. Describes the pain as sharp. Bet ter after passing gas. Denies dysuria or hematuria, vomiting or diarrhea, fever. Reports prior hernia repair. Reports nausea. States she has a history of diverticulitis and this feels similar. <Ju Monroy PA-C - Last Filed: 08/15/24 01:41> Related Data Home Medications: Home Medications Medication Instructions Recorded Confirmed ciprofloxacin HCl 500 mg tablet 500 mg PO BID 08/15/24 08/15/24 metronidazole 500 mg tablet 500 mg PO BID 08/15/24 08/15/24 <Ju Monroy PA-C - Last Filed: 08/15/24 01:41> Allergies/Adverse Reactions: Allergies Allergy/AdvReac Type Severity Reaction Status Date / Time adhesive tape Allergy Unknown Rash Verified 08/14/24 20:37 codeine Allergy Unknown Headache Verified 08/14/24 20:37 morphine Allergy Unknown Headache Verified 08/14/24 20:37 lidocaine Allergy Unknown Verified 08/14/24 20:37 <Ju Monroy PA-C - Last Filed: 08/15/24 01:41> Review of Systems Review of Systems: All systems reviewed & are unremarkable except as noted in HPI and below <Ju Monroy PA-C - Last Filed: 08/15/24 01:41> PMFSH Past Medical History Medical History: Medical History 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 Essential (primary) hypertension History of breast cancer HLD (hyperlipidemia) Pure hypercholesterolemia Type 2 diabetes mellitus without complications <Ju Monroy PA-C - Last Filed: 08/15/24 01:41> Surgical History Surgical History: Surgical History Presence of artificial hip joint, bilateral <Ju Monroy PA-C - Last Filed: 08/15/24 01:41> Family History Family History: Family History (Updated 08/15/24 @ 02:42 by Nidia Mckeon RN) Other Unknown family medical history <Ju Monroy PA-C - Last Filed: 08/15/24 01:41> Social History Social History: Social History Smoking status: Never smoker Second hand tobacco smoke exposure: No Alcohol intake: current Drinks per week: 10 Substance use: never Substance use type: does not use Do You Feel Safe in your Home?: Yes Lack of Transportation: No Lack of Food: Never True Current Housing: I Have Housing Concerned About Future Housing: No Difficulty Paying Gas/Electric Bills: No Difficulty Paying for Meds: No Currently Unemployed: No Education: High School Diploma/GED Difficulty w/ Childcare or Family Care: No Living arrangements: with family Occupation/Education: retired Gender identity (if verbalized by the patient): Female Sexual Orientation (if Verbalized by the Patient): Straight or Heterosexual Spiritual care concerns: No <Ju Monroy PA-C - Last Filed: 08/15/24 01:41> Exam Narrative: GENERAL: Well-appearing, well-nourished, and in no acute distress. HEAD: Normocephalic, atraumatic. EYES: EOMI. ENT: Nares clear, no rhinorrhea or epistaxis. Mucous membranes moist. NECK: Supple. CHEST: Clear to auscultation. No respiratory distress. HEART: Regular rate and rhythm. No murmur heard. Normal peripheral pulses. ABDOMEN: Quiet bowel sounds. Abdomen soft with tenderness in the right lower quadrant. No rebound, guarding or rigidity. Minimal right CVA tenderness. La rge healing scar down the central of the abdomen EXTREMITIES: Normal range of motion. No edema. SKIN: Warm, dry, no rash. NEURO: No focal deficits. Alert and oriented x3 <Ju Monroy PA-C - Last Filed: 08/15/24 01:41> Course MEDICAL PRACTITIONERS/PA Physician Supervision For this patient encounter, I reviewed the MEDICAL PRACTITIONERS or PA documentation, treatment plan, and medical decision making and had [id number] time with this patient. I performed all aspects of the MDM as documented. <Maikol Garay MD - Last Filed: 08/15/24 03:21> Vital Signs Vital signs: Vital Signs Temperature 96.9 F L 08/14/24 20:41 Pulse Rate 78 08/14/24 20:41 Respiratory Rate 16 08/14/24 20:41 Blood Pressure 107/68 08/14/24 20:41 Pulse Oximetry 98 08/14/24 20:41 Oxygen Delivery Room Air 08/14/24 20:41 Temperature 96.9 F L 08/14/24 20:41 Pulse Rate 73 08/15/24 02:31 Respiratory Rate 20 08/15/24 02:31 Blood Pressure 137/66 08/15/24 02:31 Pulse Oximetry 95 08/15/24 02:31 Oxygen Delivery Room Air 08/14/24 20:41 <Ju Monroy PA-C - Last Filed: 08/15/24 01:41> Vital Signs Temperature 96.9 F L 08/14/24 20:41 Pulse Rate 78 08/14/24 20:41 Respiratory Rate 16 08/14/24 20:41 Blood Pressure 107/68 08/14/24 20:41 Pulse Oximetry 98 08/14/24 20:41 Oxygen Delivery Room Air 08/14/24 20:41 Temperature 96.9 F L 08/14/24 20:41 Pulse Rate 73 08/15/24 02:31 Respiratory Rate 20 08/15/24 02:31 Blood Pressure 137/66 08/15/24 02:31 Pulse Oximetry 95 08/15/24 02:31 Oxygen Delivery Room Air 08/14/24 20:41 <Maikol Garay MD - Last Filed: 08/15/24 03:21> MDM - Abdominal Pain MDM Narrative Medical decision making narrative: 88-year-old female presents to the emergency department for right lower quadrant abdominal pain that started today. Vitals are stable. She is afebrile and nontoxic appearing. Exam is significant for the above. CBC shows no leukocytosis or anemia. Chemistries with an AST of 41, normal ALT, alk-phos and bilirubin. UA with trace leuk esterase, otherwise unremarkable. Lipase normal at 134. CT abdomen pelvis with contrast reveals infarct in the right kidney. I discussed these findings with the radiologist to states this appears to be acute or subacute. Patient has no known history of this. Will obtain CTA abdomen pelvis for more detailed picture. 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 EKG shows sinus rhythm with a first-degree block, marked LAD, Q-waves in the anterior septal leads, Q-waves in the inferior leads, no ST elevations or depressions. Patient has no history of AFib. Patient updated on workup. She received Zofran and Dilaudid with improvement in symptoms. No other etiology for symptoms. Given this is a new finding, will consult vascular surgery. Patient and family requesting [facility]. I discussed the case with [facility] vascular surgeon, Dr. Najera, who reviewed patient's images. States the amounts of renal artery stenosis is not significant enough to cause infarct to the kidney. He believes it may have been from 8th thromboembolic source. He does not feel there is a need for the patient to be transferred for vascular consult at this time. He recommends a thromboembolic workup. I discussed the case with the hospitalist, Dr. Huston, who agrees the plan for admission. Agrees to hold anticoagulants at this time given there is no evidence of an active thrombus and risks outweigh benefits. Plans to obtain an echo with color Doppler. Patient admitted in stable condition. <Ju Monroy PA-C - Last Filed: 08/15/24 01:41> Lab Data Result diagrams: 08/14/24 20:46 08/14/24 20:46 <Ju Monroy PA-C - Last Filed: 08/15/24 01:41> Labs: Lab Results 08/14/24 08/14/24 08/14/24 Range/Units 20:46 20:53 23:39 WBC 6.7 (4.5-10.0) K/mm3 RBC 4.48 (4.2-5.4) M/mm3 Hgb 14.6 (12.0-15.0) g/dL Hct 42.9 (37.0-47.0) % MCV 95.8 (80-100) fl MCH 32.6 (26-34) pg MCHC 34.0 (32-36) g/dl RDW 11.9 (11.5-14.5) % Plt Count 271 (150-375) k/mm3 MPV 8.9 (7.4-10.4) fl Immature Gran % (Auto) 0.8 H (0-0.5) % Neut % (Auto) 56.6 (45.5-73.1) % Lymph % (Auto) 31.7 (18.3-44.2) % [place] % (Auto) 9.2 H (2.6-8.5) % Eos % (Auto) 1.2 (0-4.4) % Baso % (Auto) 0.5 (0.2-1.2) % Lymph # (Auto) 2.11 (0.9-3.2) K/mm3 [place] # (Auto) 0.6 (0.1-0.6) K/mm3 Eos # (Auto) 0.1 (0-0.3) K/mm3 Baso # (Auto) 0.0 (0.0-0.1) K/mm3 Abs Immat Gran (auto) 0.05 H (0.00-0.031) K/mm3 Absolute Neuts (auto) 3.8 (1.3-6.7) K/mm3 Absolute Nucleated RBC 0.000 (0.0-0.012) K/mm3 Nucleated RBC % 0.0 (0.0-0.2) % PT (11.1-14.7) Seconds INR APTT (22.3-36.8) Seconds Sodium 136 L (137-145) mmol/L Potassium 3.9 (3.4-5.0) mmol/L Chloride 101 (98-107) mmol/L Carbon Dioxide 27 (22-30) mmol/L Anion Gap 8 (4-12) mmol/L BUN 11 (7-17) mg/dL Creatinine 0.70 (0.7-1.0) mg/dL Estim Creat Clear Calc 42 ml/min Estimated GFR > 60 (59 - ) Glucose 134 H (65-110) mg/dL Lactic Acid 1.2 (0.7-2.0) mmol/L Calcium 10.1 (8.4-10.2) mg/dL Total Bilirubin 0.7 (0.2-1.3) mg/dL AST 41 H (14-36) U/L ALT 26 (6-35) U/L Alkaline Phosphatase 76 (38-126) U/L Total Protein 9.0 H (6.3-8.2) g/dL Albumin 4.6 (3.5-5.1) g/dL Lipase 134 (23-300) U/L Urine Color Yellow (Yellow) Urine Appearance Clear (Clear) Urine pH 7.0 (5.0-9.0) Ur Specific [place] 1.016 (1.001-1.035) Urine Protein Negative (Negative) mg/dL Urine Glucose (UA) Negative (Negative) mg/dL Urine Ketones Negative (Negative) mg/dL Ur Blood (Man) Negative (Negative) Urine Nitrate Negative (Negative) Urine Bilirubin Negative (Negative) Urine Urobilinogen 0.2 (<2.0) mg/dL Leukocyte Esterase Rfl Trace H (Negative) VALERIA/UL Urine RBC 0-2 (0-2) /hpf Urine WBC 0-5 (0-3) /hpf Ur Squamous Epith Cells None seen (Few) /hpf Urine Bacteria None seen /hpf Urine Casts 0-2 08/15/24 Range/Units 00:24 WBC (4.5-10.0) K/mm3 RBC (4.2-5.4) M/mm3 Hgb (12.0-15.0) g/dL Hct (37.0-47.0) % MCV (80-100) fl MCH (26-34) pg MCHC (32-36) g/dl RDW (11.5-14.5) % Plt Count (150-375) k/mm3 MPV (7.4-10.4) fl Immature Gran % (Auto) (0-0.5) % Neut % (Auto) (45.5-73.1) % Lymph % (Auto) (18.3-44.2) % [place] % (Auto) (2.6-8.5) % Eos % (Auto) (0-4.4) % Baso % (Auto) (0.2-1.2) % Lymph # (Auto) (0.9-3.2) K/mm3 [place] # (Auto) (0.1-0.6) K/mm3 Eos # (Auto) (0-0.3) K/mm3 Baso # (Auto) (0.0-0.1) K/mm3 Abs Immat Gran (auto) (0.00-0.031) K/mm3 Absolute Neuts (auto) (1.3-6.7) K/mm3 Absolute Nucleated RBC (0.0-0.012) K/mm3 Nucleated RBC % (0.0-0.2) % PT 14.4 (11.1-14.7) Seconds INR 1.1 APTT 29.6 (22.3-36.8) Seconds Sodium (137-145) mmol/L Potassium (3.4-5.0) mmol/L Chloride (98-107) mmol/L Carbon Dioxide (22-30) mmol/L Anion Gap (4-12) mmol/L BUN (7-17) mg/dL Creatinine (0.7-1.0) mg/dL Estim Creat Clear Calc ml/min Estimated GFR (59 - ) Glucose (65-110) mg/dL Lactic Acid (0.7-2.0) mmol/L Calcium (8.4-10.2) mg/dL Total Bilirubin (0.2-1.3) mg/dL AST (14-36) U/L ALT (6-35) U/L Alkaline Phosphatase (38-126) U/L Total Protein (6.3-8.2) g/dL Albumin (3.5-5.1) g/dL Lipase (23-300) U/L Urine Color (Yellow) Urine Appearance (Clear) Urine pH (5.0-9.0) Ur Specific [place] (1.001-1.035) Urine Protein (Negative) mg/dL Urine Glucose (UA) (Negative) mg/dL Urine Ketones (Negative) mg/dL Ur Blood (Man) (Negative) Urine Nitrate (Negative) Urine Bilirubin (Negative) Urine Urobilinogen (<2.0) mg/dL Leukocyte Esterase Rfl (Negative) VALERIA/UL Urine RBC (0-2) /hpf Urine WBC (0-3) /hpf Ur Squamous Epith Cells (Few) /hpf Urine Bacteria /hpf Urine Casts <Ju Monroy PA-C - Last Filed: 08/15/24 01:41> Lab Results 08/14/24 08/14/24 08/14/24 Range/Units 20:46 20:53 23:39 WBC 6.7 (4.5-10.0) K/mm3 RBC 4.48 (4.2-5.4) M/mm3 Hgb 14.6 (12.0-15.0) g/dL Hct 42.9 (37.0-47.0) % MCV 95.8 (80-100) fl MCH 32.6 (26-34) pg MCHC 34.0 (32-36) g/dl RDW 11.9 (11.5-14.5) % Plt Count 271 (150-375) k/mm3 MPV 8.9 (7.4-10.4) fl Immature Gran % (Auto) 0.8 H (0-0.5) % Neut % (Auto) 56.6 (45.5-73.1) % Lymph % (Auto) 31.7 (18.3-44.2) % [place] % (Auto) 9.2 H (2.6-8.5) % Eos % (Auto) 1.2 (0-4.4) % Baso % (Auto) 0.5 (0.2-1.2) % Lymph # (Auto) 2.11 (0.9-3.2) K/mm3 [place] # (Auto) 0.6 (0.1-0.6) K/mm3 Eos # (Auto) 0.1 (0-0.3) K/mm3 Baso # (Auto) 0.0 (0.0-0.1) K/mm3 Abs Immat Gran (auto) 0.05 H (0.00-0.031) K/mm3 Absolute Neuts (auto) 3.8 (1.3-6.7) K/mm3 Absolute Nucleated RBC 0.000 (0.0-0.012) K/mm3 Nucleated RBC % 0.0 (0.0-0.2) % PT (11.1-14.7) Seconds INR APTT (22.3-36.8) Seconds Sodium 136 L (137-145) mmol/L Potassium 3.9 (3.4-5.0) mmol/L Chloride 101 (98-107) mmol/L Carbon Dioxide 27 (22-30) mmol/L Anion Gap 8 (4-12) mmol/L BUN 11 (7-17) mg/dL Creatinine 0.70 (0.7-1.0) mg/dL Estim Creat Clear Calc 42 ml/min Estimated GFR > 60 (59 - ) Glucose 134 H (65-110) mg/dL Lactic Acid 1.2 (0.7-2.0) mmol/L Calcium 10.1 (8.4-10.2) mg/dL Total Bilirubin 0.7 (0.2-1.3) mg/dL AST 41 H (14-36) U/L ALT 26 (6-35) U/L Alkaline Phosphatase 76 (38-126) U/L Total Protein 9.0 H (6.3-8.2) g/dL Albumin 4.6 (3.5-5.1) g/dL Lipase 134 (23-300) U/L Urine Color Yellow (Yellow) Urine Appearance Clear (Clear) Urine pH 7.0 (5.0-9.0) Ur Specific [place] 1.016 (1.001-1.035) Urine Protein Negative (Negative) mg/dL Urine Glucose (UA) Negative (Negative) mg/dL Urine Ketones Negative (Negative) mg/dL Ur Blood (Man) Negative (Negative) Urine Nitrate Negative (Negative) Urine Bilirubin Negative (Negative) Urine Urobilinogen 0.2 (<2.0) mg/dL Leukocyte Esterase Rfl Trace H (Negative) VALERIA/UL Urine RBC 0-2 (0-2) /hpf Urine WBC 0-5 (0-3) /hpf Ur Squamous Epith Cells None seen (Few) /hpf Urine Bacteria None seen /hpf Urine Casts 0-2 08/15/24 Range/Units 00:24 WBC (4.5-10.0) K/mm3 RBC (4.2-5.4) M/mm3 Hgb (12.0-15.0) g/dL Hct (37.0-47.0) % MCV (80-100) fl MCH (26-34) pg MCHC (32-36) g/dl RDW (11.5-14.5) % Plt Count (150-375) k/mm3 MPV (7.4-10.4) fl Immature Gran % (Auto) (0-0.5) % Neut % (Auto) (45.5-73.1) % Lymph % (Auto) (18.3-44.2) % [place] % (Auto) (2.6-8.5) % Eos % (Auto) (0-4.4) % Baso % (Auto) (0.2-1.2) % Lymph # (Auto) (0.9-3.2) K/mm3 [place] # (Auto) (0.1-0.6) K/mm3 Eos # (Auto) (0-0.3) K/mm3 Baso # (Auto) (0.0-0.1) K/mm3 Abs Immat Gran (auto) (0.00-0.031) K/mm3 Absolute Neuts (auto) (1.3-6.7) K/mm3 Absolute Nucleated RBC (0.0-0.012) K/mm3 Nucleated RBC % (0.0-0.2) % PT 14.4 (11.1-14.7) Seconds INR 1.1 APTT 29.6 (22.3-36.8) Seconds Sodium (137-145) mmol/L Potassium (3.4-5.0) mmol/L Chloride (98-107) mmol/L Carbon Dioxide (22-30) mmol/L Anion Gap (4-12) mmol/L BUN (7-17) mg/dL Creatinine (0.7-1.0) mg/dL Estim Creat Clear Calc ml/min Estimated GFR (59 - ) Glucose (65-110) mg/dL Lactic Acid (0.7-2.0) mmol/L Calcium (8.4-10.2) mg/dL Total Bilirubin (0.2-1.3) mg/dL AST (14-36) U/L ALT (6-35) U/L Alkaline Phosphatase (38-126) U/L Total Protein (6.3-8.2) g/dL Albumin (3.5-5.1) g/dL Lipase (23-300) U/L Urine Color (Yellow) Urine Appearance (Clear) Urine pH (5.0-9.0) Ur Specific [place] (1.001-1.035) Urine Protein (Negative) mg/dL Urine Glucose (UA) (Negative) mg/dL Urine Ketones (Negative) mg/dL Ur Blood (Man) (Negative) Urine Nitrate (Negative) Urine Bilirubin (Negative) Urine Urobilinogen (<2.0) mg/dL Leukocyte Esterase Rfl (Negative) VALERIA/UL Urine RBC (0-2) /hpf Urine WBC (0-3) /hpf Ur Squamous Epith Cells (Few) /hpf Urine Bacteria /hpf Urine Casts <Maikol Garay MD - Last Filed: 08/15/24 03:21> Imaging Data Radiologist's impression: ITS Impressions Abdomen/Pelvis CT 08/14/24 22:50 IMPRESSION: 1. Infarct in right kidney. Abdomen/Pelvis CTA 08/14/24 23:30 IMPRESSION: 1. Infarct in right kidney. 2. 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 <Ju Monroy PA-C - Last Filed: 08/15/24 01:41> ITS Impressions Abdomen/Pelvis CT 08/14/24 22:50 IMPRESSION: 1. Infarct in right kidney. Abdomen/Pelvis CTA 08/14/24 23:30 IMPRESSION: 1. Infarct in right kidney. 2. 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 <Maikol Garay MD - Last Filed: 08/15/24 03:21> Discharge Plan Discharge Clinical Impression: Renal infarct <Ju Monroy PA-C - Last Filed: 08/15/24 01:41> Patient Disposition: Still a Patient <Ju Monroy PA-C - Last Filed: 08/15/24 01:41> Condition: Stable <EMEKA Aburto Last Filed: 08/15/24 01:41>
[2024-08-14] MEDS: ONDANSETRON INJ 4 MG/2 ML VIAL IV PUSH (22:07)
[2024-08-14] MEDS: HYDROmorphone HCL INJ (*CRX) 1 MG/ML SYR 0.5 MG IV PUSH (22:57)
--- NOTE | 2024-08-14 22:59 | ECG_ITS ---
Test Date: 2024-08-14 23:13:41 Measurements Intervals [place] Rate: 70 P: -10 CO: 241 QRS: -46 QRSD: 138 T: 11 QT: 438 QTc: 473 Interpretive Statements SINUS RHYTHM WITH FIRST DEGREE AV BLOCK LEFT AXIS DEVIATION LEFT BUNDLE BRANCH BLOCK BASELINE ARTIFACT- I, II, III, AVR, AVL, AVF ABNORMAL ECG No previous ECG available for comparison Electronically Signed On 08-15-2024 05:58:32 SKI BINDING FITTER AND REPAIRER by Ronald Olmedo D.O.
[2024-08-14 23:56] LABS: Lactic Acid Reflex 1.2 mmol/L (0.7-2.0)
[2024-08-15] VITALS (21 sets, daily range): BP systolic 137–167; BP diastolic 66–102; PULSE 62–85; RESP 12–30; TEMP 36.7–36.8; O2SAT 95–100; BMI 22.8
[2024-08-15 00:46] LABS: INR 1.1; Prothrombin Time 14.4 Seconds (11.1-14.7)
[2024-08-15 00:47] LABS: Partial Thromboplastin Time 29.6 Seconds (22.3-36.8)
[2024-08-15] MEDS: HYDROmorphone HCL INJ (*CRX) 1 MG/ML SYR 0.5 MG IV PUSH ×2 (01:40→12:54)
[2024-08-15] MEDS: FAMOTIDINE 20 MG/2 ML VIAL IV PUSH (01:51)
--- NOTE | 2024-08-15 03:28 | ADMGEN ---
This patient, Abbie Castillo, was admitted to Medical Room 348-01. Patient/family oriented to hospital policies and general routines including ID bracelet, bed and alarms, visiting hours, pain management, procedures, bathroom and other care routines, personal items, smoking policy, room service/diet, and visiting hours. Information on how to activate the Rapid Response Team has been discussed. Patient/Family are encouraged to report perceived risks to care and to ask questions if they do not understand what they are told or what they should do.
--- NOTE | 2024-08-15 10:08 | P.HP_ITS ---
H&P: HPI History of Present Illness Date/Time: 08/15/24 10:08 Chief Complaint: abd pain Narrative: 88-year-old female with history of type 2 diabetes, hyperlipidemia, hypertension, breast cancer in remission for approximately 7 years, bilateral mastectomy presents emergency department for right lower quadrant abdominal pain that started today, worsening this afternoon. Describes the pain as sharp. Better after passing gas. Denies dysuria or hematuria, vomiting or diarrhea, fever. Reports prior hernia repair. Reports nausea. States she has a history of diverticulitis and this feels similar. In ED: CBC shows no leukocytosis or anemia. Chemistries with an AST of 41, normal ALT, alk-phos and bilirubin. UA with trace leuk esterase, otherwise unremarkable. Lipase normal at 134. CT abdomen pelvis with contrast reveals infarct in the right kidney. 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 EKG shows sinus rhythm with a first-degree block, marked LAD, Q-waves in the anterior septal leads, Q-waves in the inferior leads, no ST elevations or depressions. Patient has no history of AFib. Patient received Zofran and Dilaudid with improvement in symptoms. No other etiology for symptoms. ER consulted vascular surgery at [facility] ER physician iscussed the case with [facility] vascular surgeon, Dr. Najera, who reviewed patient's images. States the amounts of renal artery stenosis is not significant enough to cause infarct to the kidney. He believes it may have been from 8th thromboembolic source. He does not feel there is a need for the patient to be transferred for vascular consult at this time. He recommends a thromboembolic workup. Plan to hold anticoagulants at this time given there is no evidence of an active thrombus and risks outweigh benefits. Plans to obtain an echo with color Doppler. 08/15- pt is seen and examined. she is resting comfortably in bed. voicing no complains. Pain but medication is helping. waiting for echo. Report some diverticultis issues in the past- she has cipro and flagyl to take if needed. 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 Essential (primary) hypertension History of breast cancer HLD (hyperlipidemia) Pure hypercholesterolemia Type 2 diabetes mellitus without complications Surgical History Surgical History Presence of artificial hip joint, bilateral Family History Family History (Updated 08/15/24 @ 02:42 by Nidia Mckeon RN) Other Unknown family medical history Social History Social History Smoking status: Never smoker Second hand tobacco smoke exposure: No Alcohol intake: current Drinks per week: 10 Substance use: never Substance use type: does not use Do You Feel Safe in your Home?: Yes Lack of Transportation: No Lack of Food: Never True Current Housing: I Have Housing Concerned About Future Housing: No Difficulty Paying Gas/Electric Bills: No Difficulty Paying for Meds: No Currently Unemployed: No Education: High School Diploma/GED Difficulty w/ Childcare or Family Care: No Living arrangements: with family Occupation/Education: retired Gender identity (if verbalized by the patient): Female Sexual Orientation (if Verbalized by the Patient): Straight or Heterosexual Spiritual care concerns: No Meds Home Medications and Allergies Home Medications Medication Instructions Recorded Confirmed Type lisinopril 10 mg tablet 10 mg PO DAILY #90 tabs 05/29/24 08/15/24 Rx alprazolam 0.25 mg tablet (Xanax) 0.25 mg PO TID PRN anxiety #30 tabs 07/02/24 08/15/24 Rx ciprofloxacin HCl 500 mg tablet 500 mg PO BID 08/15/24 08/15/24 History metronidazole 500 mg tablet 500 mg PO BID 08/15/24 08/15/24 History Allergies Allergy/AdvReac Type Severity Reaction Status Date / Time adhesive tape Allergy Unknown Rash Verified 08/14/24 20:37 codeine Allergy Unknown Headache Verified 08/14/24 20:37 morphine Allergy Unknown Headache Verified 08/14/24 20:37 lidocaine Allergy Unknown Verified 08/14/24 20:37 Vital Signs Vital Signs - 24 hr 08/14/24 20:41 08/14/24 22:02 08/14/24 21:26 Temperature 96.9 F L Pulse Rate 78 70 65 Respiratory Rate 16 20 19 Blood Pressure 107/68 190/90 H Pulse Oximetry 98 98 99 Oxygen Delivery Room Air 08/14/24 21:59 08/14/24 22:01 08/14/24 22:16 Temperature Pulse Rate 63 72 57 L Respiratory Rate 25 H 21 H 22 H Blood Pressure 184/83 H 190/90 H Pulse Oximetry 100 100 Oxygen Delivery 08/14/24 22:17 08/14/24 23:12 08/14/24 23:37 Temperature Pulse Rate 72 72 Respiratory Rate 22 H 19 36 H Blood Pressure 163/89 H Pulse Oximetry 99 99 82 L Oxygen Delivery 08/14/24 23:39 08/14/24 23:45 08/14/24 23:46 Temperature Pulse Rate 86 77 79 Respiratory Rate 20 20 21 H Blood Pressure 181/99 H 156/140 H Pulse Oximetry 80 L 84 L 95 Oxygen Delivery 08/15/24 00:00 08/15/24 00:01 08/15/24 00:16 Temperature Pulse Rate 77 77 73 Respiratory Rate 22 H 17 14 Blood Pressure 150/102 H 161/73 H Pulse Oximetry 99 96 96 Oxygen Delivery 08/15/24 00:17 08/15/24 00:30 08/15/24 00:31 Temperature Pulse Rate 84 85 84 Respiratory Rate 19 20 19 Blood Pressure 167/78 H Pulse Oximetry 99 100 98 Oxygen Delivery 08/15/24 00:45 08/15/24 00:46 08/15/24 01:00 Temperature Pulse Rate 73 74 73 Respiratory Rate 18 15 16 Blood Pressure 154/76 H Pulse Oximetry 99 96 100 Oxygen Delivery 08/15/24 01:15 08/15/24 01:16 08/15/24 01:30 Temperature Pulse Rate 75 76 71 Respiratory Rate 18 13 17 Blood Pressure 155/82 H Pulse Oximetry 95 Oxygen Delivery 08/15/24 01:31 08/15/24 01:45 08/15/24 01:46 Temperature Pulse Rate 72 78 76 Respiratory Rate 15 30 H 27 H Blood Pressure 161/77 H 157/80 H Pulse Oximetry 97 98 99 Oxygen Delivery 08/15/24 02:01 08/15/24 02:16 08/15/24 02:31 Temperature Pulse Rate 70 71 73 Respiratory Rate 17 12 20 Blood Pressure 156/80 H 145/67 H 137/66 Pulse Oximetry 98 99 95 Oxygen Delivery 08/15/24 03:20 08/15/24 06:00 08/15/24 08:00 Temperature 98.1 F Pulse Rate 66 Respiratory Rate 20 Blood Pressure 140/72 Pulse Oximetry 98 Oxygen Delivery Room Air Room Air Exam Const: General: comfortable; No no acute distress Resp: Effort & Inspection: normal respiratory effort Auscultation: clear to auscultation bilaterally Cardio: Rate: regular rate Rhythm: regular rhythm GI: Auscultation: normal bowel sounds Skin: General skin exam: normal color Extrem: General: normal to inspection H&P: Results Labs Labs: Short CBC 08/14/24 Range/Units 20:46 WBC 6.7 (4.5-10.0) K/mm3 Hgb 14.6 (12.0-15.0) g/dL Hct 42.9 (37.0-47.0) % Plt Count 271 (150-375) k/mm3 BMP 08/14/24 20:46 Sodium 136 L Potassium 3.9 Chloride 101 Carbon Dioxide 27 BUN 11 Creatinine 0.70 Glucose 134 H Calcium 10.1 Liver Function 08/14/24 Range/Units 20:46 Total Bilirubin 0.7 (0.2-1.3) mg/dL AST 41 H (14-36) U/L ALT 26 (6-35) U/L Alkaline Phosphatase 76 (38-126) U/L Albumin 4.6 (3.5-5.1) g/dL Urine 08/14/24 Range/Units 20:53 Urine Color Yellow (Yellow) Urine Appearance Clear (Clear) Urine pH 7.0 (5.0-9.0) Ur Specific Powers 1.016 (1.001-1.035) Urine Protein Negative (Negative) mg/dL Urine Glucose (UA) Negative (Negative) mg/dL Assessment and Plan Assessment and plan (1) Renal infarct: Code(s): N28.0 - Ischemia and infarction of kidney Status: Acute Assessment and Plan: add nephrology con -IV hydration _pain control (2) Type 2 diabetes mellitus without complications: Code(s): E11.9 - Type 2 diabetes mellitus without complications Status: Acute Assessment and Plan: will add ss, hypoglycemia protocol (3) Pure hypercholesterolemia: Code(s): E78.00 - Pure hypercholesterolemia, unspecified Status: Acute (4) HLD (hyperlipidemia): Code(s): E78.5 - Hyperlipidemia, unspecified Status: Acute (5) Essential (primary) hypertension: Code(s): I10 - Essential (primary) hypertension Status: Acute Assessment and Plan: will continue home lisinopril (6) Anxiety: Code(s): F41.9 - Anxiety disorder, unspecified Status: Acute Assessment and Plan: xanax prn Quality VTE Prophylaxis VTE prophylaxis: mechanical ordered
[2024-08-15] MEDS: HYDROcodone/acetaminophen (*CRX) 5-325 MG TABLET 1 TAB PO ×2 (17:22→23:39)
[2024-08-15 19:31] LABS: Hemoglobin A1C 6.6 % (<5.7)
[2024-08-15 22:00] LABS: Glucose Point of Care 187 mg/dl (65-105)
[2024-08-16 06:00] VITALS: BP 124/53; PULSE 67; RESP 18; TEMP 36.3; O2SAT 96
--- NOTE | 2024-08-16 06:00 | ECHO_ITS ---
Patient Info Name: Abbie Castillo Age: 88 years : 1935 Gender: Female Ht: 64 in Wt: 133 lbs BSA: 1.66 m2 HR: 62 bpm BP: 153 / 80 mmHg Technical Quality: Poor Exam Date: 08/16/2024 8:58 AM Exam Location: Echo Lab Patient Status: Outpatient Admit Date: 08/15/2024 Staff Ordering Physician: Ju Monroy PA-C Physician Assistant Primary Care: EMILIA Attending Provider: Barbara Palmer MD Referring Physician: Porfirio RAMIREZ; Exam Type: CA echo dop bubble study w con Study Info Indications - R/O cause for embolism Complete two-dimentional, color flow and Doppler transthoracic echocardiogram is performed with agitated saline and with contrast to opacify the left ventricle and to improve the delineation of the left ventricle endocardial borders. Contrast/Agitated Saline Contrast/Ag. Saline: Agitated Saline Amount: 20.00 ml Existing IV Access: Yes Contrast/Ag. Saline: Definity Amount: 2.00 ml Existing IV Access: Yes Reason for Poor Study: poor echocardiographic windows Summary 1. Definity contrast administered improved wall motion interpretation. 2. Left ventricular chamber dimension is normal. 3. Left ventricular systolic function is normal, estimated at 60-65%. 4. The left ventricular diastolic function is grade I diastolic dysfunction. 5. E/e' 15 is elevated. 6. There is mild aortic valve sclerosis. 7. The mitral valve has severely calcified annulus. 8. There is mild tricuspid valve regurgitation. 9. No pulmonary hypertension, estimated pulmonary arterial systolic pressure is 37 mmHg. Left Ventricle E/e' 15 is elevated. Definity contrast administered improved wall motion interpretation. Left ventricular chamber dimension is normal. Left ventricular systolic function is normal, estimated at 60-65%. The left ventricular diastolic function is grade I diastolic dysfunction. Right Ventricle Right ventricular systolic function is normal and with normal TAPSE 2.4 cm. Right ventricular chamber dimension is normal. Left Atria Left atrial chamber dimension is normal. Right Atria Right atrial chamber dimension is normal. Atrial Septum Agitated saline injection with and without valsalva maneuver opacified right side cardiac chambers without obvious shunt to left side cardiac chambers. Interatrial septum not well visualized by 2D and agitated saline imaging. Aortic Valve The aortic valve is trileaflet. There is mild aortic valve sclerosis. There is no aortic valve stenosis. There is no aortic valve regurgitation. Pulmonic Valve There is no pulmonic regurgitation. Mitral Valve The mitral valve has severely calcified annulus. There is no mitral valve stenosis. There is no mitral valve regurgitation. Tricuspid Valve There is mild tricuspid valve regurgitation. No pulmonary hypertension, estimated pulmonary arterial systolic pressure is 37 mmHg. Pericardium/Pleural There is no pericardial effusion. Inferior Vena Cava Normal inferior vena cava with >50% collapse upon inspiration consistent with normal right atrial pressure, 5 mmHg. Aorta The aortic root size at the sinus of Valsalva is normal. Left Ventricular Outflow Tract Name Value Normal LVOT 2D LVOT Diameter 1.6 cm LVOT Doppler LVOT Peak Gradient 8 mmHg LVOT Mean Gradient 4 mmHg LVOT VTI 31 cm LVOT VTI/AV VTI Ratio 0.7 LVOT Stroke Volume 62 ml LVOT CO 4.2 l/min LVOT CI 2.5 l/min/m2 Pulmonic Valve Name Value Normal RVOT Doppler RVOT Peak Gradient 3 mmHg PV Doppler PV Peak Gradient 4 mmHg PV Regurgitation Doppler OR Peak End Diastolic Velocity 80 cm/s Mitral Valve Name Value Normal MV Doppler MV Peak Gradient 10 mmHg MV Mean Gradient 4 mmHg MV Decel Latimer 452 cm/s2 MV PHT 58 ms MV Area (PHT) 3.8 cm2 4.0-5.0 MV Area (Cont Eq VTI) 1.5 cm2 MV Diastolic Function MV E Peak Velocity 91 cm/s MV A Peak Velocity 148 cm/s MV E/A 0.6 MV Decel Time 201 ms MV Annular TDI MV E/e' (Septal) 17.4 <=8.0 MV E/e' (Lateral) 13.7 <=8.0 MV E/e' (Average) 15.5 Tricuspid Valve Name Value Normal TV Regurgitation Doppler TR Peak Velocity 282 cm/s TR Peak Gradient 32 mmHg Estimated PAP/RSVP RA Pressure 5 mmHg <=5 PA Systolic Pressure 37 mmHg <36 RV Systolic Pressure 37 mmHg <36 Aorta Name Value Normal Ascending Aorta Ao Root Diameter (MM) 2.7 cm Ao Root Diam Index (MM) 1.6 cm/m2 Aortic Valve Name Value Normal AV Doppler AV Peak Velocity 203 cm/s AV Peak Gradient 17 mmHg AV Mean Gradient 11 mmHg AV VTI 44 cm AV Area (Cont Eq VTI) 1.4 cm2 >=3.0 AV Area (Cont Eq Tony) 1.4 cm2 AV Regurgitation 2D LVOT Area 2.0 cm2 Ventricles Name Value Normal LV Dimensions 2D/MM IVS Diastolic Thickness (2D) 0.9 cm 0.6-1.0 LVID Diastole (2D) 3.0 cm 3.8-5.2 LVIW Diastolic Thickness (2D) 1.5 cm 0.6-0.9 LVID Systole (2D) 1.8 cm 2.2-3.5 LVOT Diameter 1.6 cm LV Mass (2D Cubed) 113.99 g 67.00-162.00 LV Mass Index (2D Cubed) 69 g/m2 43-95 Relative Wall Thickness (2D) 1.02 LV Fractional Shortening/Ejection Fraction 2D/MM LV Fractional Shortening (2D) 37 % 27-45 LV EF (2D Teicholz) 69 % 54-74 LV Diastolic Volume (4C MOD) 58 ml LV EF (4C MOD) 72 % LV Diastolic Volume (2C MOD) 39 ml LV EF (2C MOD) 68 % LV Diastolic Volume (BP MOD) 49 ml 46-106 LV Diastolic Volume Index (BP MOD) 30 ml/m2 29-61 LV Systolic Volume (BP MOD) 16 ml 14-42 LV Systolic Volume Index (BP MOD) 9 ml/m2 8-24 LV EF (BP MOD) 68 % 54-74 LV Diastolic Length (4C) 6.8 cm LV Systolic Length (4C) 5.7 cm LV Stroke Volume (4C MOD) 42 ml Atria Name Value Normal LA Dimensions LA Dimension (MM) 3.7 cm 2.7-3.8 Report Signatures Amended by Ronald Olmedo DO on 08/16/2024 16:09
--- NOTE | 2024-08-16 07:40 | PM.IMPN ---
Progress Note: A&P Assessment and Plan (1) Renal infarct: Code(s): N28.0 - Ischemia and infarction of kidney Status: Acute Assessment and Plan: ED provider discussed case with [facility] vascular surgeon, Dr. Najera- States the amounts of renal artery stenosis is not significant enough to cause infarct to the kidney. He believes it may have been from 8th thromboembolic source. He does not feel there is a need for the patient to be transferred for vascular consult at this time. He recommends a thromboembolic workup . - hold anticoagulants at this time given there is no evidence of an active thrombus and risks outweigh benefits - echo with color Doppler. add nephrology consult -IV hydration _pain control -echo is done, doppler is done-so far thromboembolic work up negative (2) Type 2 diabetes mellitus without complications: Code(s): E11.9 - Type 2 diabetes mellitus without complications Status: Acute Assessment and Plan: pt reports no active diabetes, not on any meds -will add hga1c and montitor for now (3) Pure hypercholesterolemia: Code(s): E78.00 - Pure hypercholesterolemia, unspecified Status: Acute (4) HLD (hyperlipidemia): Code(s): E78.5 - Hyperlipidemia, unspecified Status: Acute (5) Essential (primary) hypertension: Code(s): I10 - Essential (primary) hypertension Status: Acute Assessment and Plan: will continue home lisinopril (6) Anxiety: Code(s): F41.9 - Anxiety disorder, unspecified Status: Acute Assessment and Plan: xanax prn Plan # diverticulitis pt has cipro and flagyl on her home emd lsit that she takes when she has a flare up -per CT - There is diverticulosis of the colon without evidence of diverticulitis. -will hold antibiotics for now and monitor Time Spent With Patient Time with patient: Greater than 35 minutes Subjective Date/time seen: 08/16/24 07:40 Interval history: seen and examined. pain is better today. if continues to improve- anticipate discharge home with a close f/u with nephrolohy Review of Systems Review of Systems: All systems reviewed & are unremarkable except as noted in HPI and below Exam Const: General: comfortable; No no acute distress Resp: Effort & Inspection: normal respiratory effort Auscultation: clear to auscultation bilaterally Cardio: Rate: regular rate Rhythm: regular rhythm GI: Auscultation: normal bowel sounds Skin: General skin exam: normal color Extrem: General: normal to inspection Objective Data Vital Signs Vital Signs: Vital Signs - 24 hr 08/15/24 08:00 08/15/24 14:00 08/15/24 20:00 Temperature 98.0 F Pulse Rate 68 Respiratory Rate 20 Blood Pressure 160/80 H Pulse Oximetry 100 Oxygen Delivery Room Air Room Air 08/15/24 22:05 08/16/24 06:00 Temperature 98.2 F 97.3 F L Pulse Rate 62 67 Respiratory Rate 18 18 Blood Pressure 153/80 H 124/53 L Pulse Oximetry 96 96 Oxygen Delivery Intake/Output Intake/Output: Intake & Output 08/13/24 08/14/24 08/15/24 08/16/24 23:59 23:59 23:59 23:59 Intake Total 910 600 Output Total 500 1600 Balance 410 -1000 Meds/Results Medications: Active Medications Generic Name Dose Route Start Last Admin Trade Name Freq PRN Reason Stop Dose Admin Hydrocodone Bitart/Acetaminophen 1 tab 08/15/24 11:58 08/15/24 23:39 Hydrocodone/Acetaminophen (*Crx) 5-325 Mg Tablet PO 1 tab Q4H PRN Administration Pain Rated 4-6 Alprazolam 0.25 mg 08/15/24 15:24 Alprazolam (*Crx) 0.25 Mg Tablet PO TID PRN anxiety Dextrose 12.5 gm 08/15/24 15:24 Dextrose 50% 25 Gm/50 Ml Syringe IV PUSH PRN PRN Hypoglycemia Protocol Glucagon 1 mg 08/15/24 15:24 Glucagon For Inj 1 Mg Vial IM PRN PRN Hypoglycemia Protocol Glucose 15 gm 08/15/24 15:24 Glucose Oral Gel 15 Gm Of Glucse In 37.5 Gm Tube PO PRN PRN Hypoglycemia Protocol Hydromorphone HCl 0.5 mg 08/15/24 01:37 08/15/24 12:54 Hydromorphone Hcl Inj (*Crx) 1 Mg/Ml Syr IV PUSH 0.5 mg Q4H PRN Administration Pain Rated 7-10 Dextrose 1,000 mls @ 100 mls/hr 08/15/24 15:24 Dextrose 5% 1,000 Ml IVPB PRN PRN Hypoglycemia Protocol Insulin Aspart 2 - 5 units 08/15/24 17:00 08/15/24 21:34 Insulin Aspart (*Bkc) 100 Units/Ml SUB-Q Not Given TIDWM [facility] Protocol Lisinopril 10 mg 08/16/24 09:00 Lisinopril 10 Mg Tablet PO DAILY [facility] Perflutren Lipid Microsphere 0 ml 08/15/24 01:37 Perflutren Lipid Microspheres 1.5 Ml Vial Diluted To 10 Ml Total Volume IV PUSH 08/18/24 01:40 ONCE PRN adequate visualization Protocol Radiology Results: ITS Impressions Abdomen/Pelvis CT 08/14/24 22:50 IMPRESSION: 1. Infarct in right kidney. Abdomen/Pelvis CTA 08/14/24 23:30 IMPRESSION: 1. Infarct in right kidney. 2. 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 Labs Labs: Laboratory Results - last 24 hr 08/14/24 08/15/24 20:46 20:54 POC Capillary Glucose 187 H Hemoglobin A1c 6.6 H Quality VTE Prophylaxis VTE prophylaxis: mechanical ordered
[2024-08-16 07:47] VITALS: O2SAT 96
[2024-08-16 08:23] LABS: Glucose Point of Care 148 mg/dl (65-105)
[2024-08-16] MEDS: HYDROcodone/acetaminophen (*CRX) 5-325 MG TABLET 1 TAB PO ×3 (08:35→22:53)
[2024-08-16] MEDS: lisinopriL 10 MG TABLET PO (08:35)
[2024-08-16] MEDS: PERFLUTREN LIPID MICROSPHERES 1.5 ML VIAL DILUTED TO 10 ML TOTAL VOLUME IV PUSH (09:50)
--- NOTE | 2024-08-16 11:01 | IVDEFINITY ---
Prior to administration of IV Definity the patient was educated on the risks and benefits of the imaging enhancing agent including potential adverse side effects. The patient verbalized understanding. Allergies were verified. No exclusion criteria were identified and at least one of the following inclusion criteria were met: 1) physician request, 2) patient technically difficult to image (per the [place] [employer] guidelines of two or more segments not discernable within the apical view), or 3) questionable left ventricular function. ?
[2024-08-16 12:02] LABS: Glucose Point of Care 149 mg/dl (65-105)
[2024-08-16 14:39] VITALS: BP 135/65; PULSE 66; RESP 16; TEMP 36.9; O2SAT 95
--- NOTE | 2024-08-16 15:10 | P.CONNP_ITS ---
History of Present Illness Reason for Consult Consult date: 08/16/24 Reason for consult: Other (renal infarct) Chief Complaint Chief complaint: Renal infarct Review of Systems Review of Systems: As per HPI. 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 Essential (primary) hypertension History of breast cancer HLD (hyperlipidemia) Pure hypercholesterolemia Type 2 diabetes mellitus without complications Surgical History Surgical History Presence of artificial hip joint, bilateral Family History Family History (Updated 08/15/24 @ 02:42 by Nidia Mckeon RN) Other Unknown family medical history Social History Social History Smoking status: Never smoker Second hand tobacco smoke exposure: No Alcohol intake: current Drinks per week: 10 Substance use: never Substance use type: does not use Do You Feel Safe in your Home?: Yes Lack of Transportation: No Lack of Food: Never True Current Housing: I Have Housing Concerned About Future Housing: No Difficulty Paying Gas/Electric Bills: No Difficulty Paying for Meds: No Currently Unemployed: No Education: High School Diploma/GED Difficulty w/ Childcare or Family Care: No Living arrangements: with family Occupation/Education: retired Gender identity (if verbalized by the patient): Female Sexual Orientation (if Verbalized by the Patient): Straight or Heterosexual Spiritual care concerns: No Meds Home Medications and Allergies Home Medications Medication Instructions Recorded Confirmed Type lisinopril 10 mg tablet 10 mg PO DAILY #90 tabs 05/29/24 08/15/24 Rx alprazolam 0.25 mg tablet (Xanax) 0.25 mg PO TID PRN anxiety #30 tabs 07/02/24 08/15/24 Rx ciprofloxacin HCl 500 mg tablet 500 mg PO BID 08/15/24 08/15/24 History metronidazole 500 mg tablet 500 mg PO BID 08/15/24 08/15/24 History Allergies Allergy/AdvReac Type Severity Reaction Status Date / Time adhesive tape Allergy Unknown Rash Verified 08/14/24 20:37 codeine Allergy Unknown Headache Verified 08/14/24 20:37 morphine Allergy Unknown Headache Verified 08/14/24 20:37 lidocaine Allergy Unknown Verified 08/14/24 20:37 Vital Signs Vital Signs Temp Pulse Resp BP Pulse Ox O2 Del Method FiO2 08/16/24 15:00 Room Air 08/16/24 14:39 98.5 F 66 16 135/65 95 08/16/24 08:00 Room Air 08/16/24 07:47 96 Room Air 21 08/16/24 06:00 97.3 F L 67 18 124/53 L 96 08/15/24 22:05 98.2 F 62 18 153/80 H 96 08/15/24 20:00 Room Air Exam Narrative: GENERAL APPEARANCE: well developed well nourished female in no acute distress HEENT: normocephalic, atraumatic, normal conjunctiva and sclera, nares patient NECK: no lymphadenopathy, thyromegaly, or JVD MOUTH: normal lips, teeth, and gums CARDIOVASCULAR: RRR, normal S1 and S2, no rub RESPIRATORY: clear to auscultation bilaterally ABDOMEN: soft, nontender, nondistended, positive bowel sounds present EXTREMITIES: no evidence of cyanosis, clubbing, or edema NEUROLOGICAL: alert and oriented x 3; CN II - XII intact bilaterally; no focal deficits noted Results Lab Results 08/14/24 20:46 08/14/24 20:46 Lab results: Most recent lab results Calcium 10.1 mg/dL (8.4-10.2) 08/14/24 20:46
[2024-08-16 16:38] LABS: Glucose Point of Care 128 mg/dl (65-105)
[2024-08-16] MEDS: polyethylene glycoL 3350 17 GM POWD.PACK PO (17:48)
[2024-08-16 22:00] VITALS: BP 148/63; PULSE 72; RESP 20; TEMP 36.6; O2SAT 98
[2024-08-17 06:00] VITALS: BP 133/66; PULSE 56; RESP 16; TEMP 36.6; O2SAT 95
[2024-08-17 06:08] LABS: Hematocrit 40.5 % (37.0-47.0); Hemoglobin 13.5 g/dL (12.0-15.0); Mean Corpuscular HGB Conc 33.3 g/dl (32-36); Mean Corpuscular Hemoglobin 32.1 pg (26-34); Mean Corpuscular Volume 96.4 fl (80-100); Mean Platelet Volume 8.9 fl (7.4-10.4); Platelet Count Result 221 k/mm3 (150-375); White Blood Count 7.3 K/mm3 (4.5-10.0)
[2024-08-17 06:23] LABS: Anion Gap 2 mmol/L (4-12); Blood Urea Nitrogen 8 mg/dL (7-17); Calcium 9.2 mg/dL (8.4-10.2); Carbon Dioxide 31 mmol/L (22-30); Chloride 101 mmol/L (98-107); Estimated CRCL calculation 37 ml/min; Estimated Glomerular Filt Rate > 60; Glucose 103 mg/dL (65-110); Potassium 3.9 mmol/L (3.4-5.0); Sodium 134 mmol/L (137-145)
[2024-08-17] MEDS: lisinopriL 10 MG TABLET PO (08:48)
[2024-08-17] MEDS: polyethylene glycoL 3350 17 GM POWD.PACK PO (08:48)
[2024-08-17] MEDS: HYDROcodone/acetaminophen (*CRX) 5-325 MG TABLET 1 TAB PO (08:50)
--- NOTE | 2024-08-17 11:02 | P.DS_ITS ---
DS: Admitting Diagnosis Discharge Date 08/17 Admitting Diagnosis back pain DS: Discharge Diagnosis Discharge Diagnosis (1) Renal infarct: Code(s): N28.0 - Ischemia and infarction of kidney Status: Acute (2) Type 2 diabetes mellitus without complications: Code(s): E11.9 - Type 2 diabetes mellitus without complications Status: Acute (3) Pure hypercholesterolemia: Code(s): E78.00 - Pure hypercholesterolemia, unspecified Status: Acute (4) HLD (hyperlipidemia): Code(s): E78.5 - Hyperlipidemia, unspecified Status: Acute (5) Essential (primary) hypertension: Code(s): I10 - Essential (primary) hypertension Status: Acute (6) Anxiety: Code(s): F41.9 - Anxiety disorder, unspecified Status: Acute DS: Summary Hospital Course Hospital Course: 88-year-old female with history of type 2 diabetes, hyperlipidemia, hypertension, breast cancer in remission for approximately 7 years, bilateral mastectomy presents emergency department for right lower quadrant abdominal pain that started today, worsening this afternoon. Describes the pain as sharp. Better after passing gas. Denies dysuria or hematuria, vomiting or diarrhea, fever. Reports prior hernia repair. Reports nausea. States she has a history of diverticulitis and this feels similar. In ED: CBC shows no leukocytosis or anemia. Chemistries with an AST of 41, normal ALT, alk-phos and bilirubin. UA with trace leuk esterase, otherwise unremarkable. Lipase normal at 134. CT abdomen pelvis with contrast reveals infarct in the right kidney. 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 EKG shows sinus rhythm with a first-degree block, marked LAD, Q-waves in the anterior septal leads, Q-waves in the inferior leads, no ST elevations or depressions. Patient has no history of AFib. ED provider discussed case with [facility] vascular surgeon, Dr. Najera- States the amounts of renal artery stenosis is not significant enough to cause infarct to the kidney. He believes it may have been from 8th thromboembolic source. He does not feel there is a need for the patient to be transferred for vascular consult at this time. He recommends a thromboembolic workup . - hold anticoagulants at this time given there is no evidence of an active thrombus and risks outweigh benefits - echo with color Doppler- unremarkable - Doppler was done- NO dvt nephrology was consulted- no acute interventions needed will need f/u with vascular as an out to monitor infarct in the right kidney and moderate stenosis of the origin of the right renal artery. # diverticulitis pt has cipro and flagyl on her home med list that she takes when she has a flare up -per CT - There is diverticulosis of the colon without evidence of diverticulitis. -will hold antibiotics for now and monitor Status at Discharge Functional status at discharge: uses cane/walker Overall status at discharge: patient is progressing back to baseline Time Spent with Patient Time attestation: Total time spent providing and/or coordinating discharge services: Exam Const: General: comfortable; No no acute distress Resp: Effort & Inspection: normal respiratory effort Auscultation: clear to auscultation bilaterally Cardio: Rate: regular rate Rhythm: regular rhythm GI: Auscultation: normal bowel sounds Skin: General skin exam: normal color Extrem: General: normal to inspection DS: Data Data Completed and Pending Labs on day of discharge: Labs from last 24 hours 08/17/24 08/16/24 08/16/24 05:51 16:32 11:54 WBC 7.3 RBC 4.20 Hgb 13.5 Hct 40.5 MCV 96.4 MCH 32.1 MCHC 33.3 RDW 12.0 Plt Count 221 MPV 8.9 Sodium 134 L Potassium 3.9 Chloride 101 Carbon Dioxide 31 H Anion Gap 2 L BUN 8 Creatinine 0.80 Estim Creat Clear Calc 37 Estimated GFR > 60 Glucose 103 POC Capillary Glucose 128 H 149 H Calcium 9.2 Discharge Plan Discharge Consulting providers: Donya Rooney Discharging Clinician: Lucila Robles Patient Disposition: Home, Self-Care Activity: may shower Diet: as tolerated and regular Discharge Instructions: you were admitted for lower quadrant pain. You urine was fine- not UTI, no evidence of diverticulitis. Could be related to constipation. I will send you home with miralax and colace as needed. Please follow up with pcp who can help refer you to vascular to monitor renal stenosis. 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 stay hydrated, take tylenol if needed for pain. If pain gets worse, or symptom change- report back to ed. Patient Instructions: Antibiotic Form, Pain Management (DC) Stand Alone Forms: General Discharge Information Follow-up/Referrals: Pantera aLne MD [Primary Care Provider] - 1 Week Discharge Medications: New hydrocodone-acetaminophen 5-325 mg Tablet 1 tablet PO Q4H PRN (Reason: Pain Rated 4-6) Qty: 12 0RF docusate sodium [Colace] 100 mg capsule 100 mg PO DAILY Qty: 20 0RF polyethylene glycol 3350 [Miralax] 17 gram Powder In Packet 17 g PO QAM Qty: 12 0RF Continued metronidazole 500 mg tablet 500 mg PO BID ciprofloxacin HCl 500 mg tablet 500 mg PO BID lisinopril 10 mg tablet 10 mg PO DAILY Qty: 90 2RF alprazolam [Xanax] 0.25 mg tablet 0.25 mg PO TID PRN (Reason: anxiety) Qty: 30 0RF Date of admission: 08/15/24 01:37 Primary Care Provider: Pantera Lane Admitting Provider: Barbara Palmer V. Attending physician on admission: Barbara Palmer V. Condition: Stable Quality VTE Prophylaxis VTE prophylaxis: mechanical ordered
== END 2024-08-17 14:30 | disposition home or self-care (01) ==
LOC: ANHED 08-15 01:37 → ANH3MED 08-15 02:35
PROVIDERS: Emergency Medicine; Nurse Practitioner; Admitting Provider Internal Medicine; Emergency Provider Physician Assistant; PCP Family Medicine; Visit Provider Internal Medicine
DX: N28.0 Ischemia and infarction of kidney (principal); E11.9 Type 2 diabetes mellitus without complications; E78.00 Pure hypercholesterolemia, unspecified; I10 Essential (primary) hypertension; F41.9 Anxiety disorder, unspecified; K57.30 Diverticulosis of large intestine without perforation or abscess without bleeding; M19.012 Primary osteoarthritis, left shoulder; M19.011 Primary osteoarthritis, right shoulder; Z85.3 Personal history of malignant neoplasm of breast; Z96.643 Presence of artificial hip joint, bilateral; Z90.13 Acquired absence of bilateral breasts and nipples; Z79.899 Other long term (current) drug therapy
CPT/HCPCS: 36415; 74174; 74177; 80048; 80053; 81001; 82948; 83036; 83605; 83690; 85025; 85027; 85610; 85730; 93005; 93970; 96374; 96375; 96376; 97165; 99285; A9270; C8929; G0378; J1171; J2405; Q9957; Q9967

== ENCOUNTER 2025-04-11 12:18 | Outpatient (CLI) | payer OTHER, SELFPAY ==
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
--- OUTSIDE RECORDS SUMMARY | 2025-04-11 12:21 | XMS_ITS | Clinical Summary ---
Author Organization [facility] Address [address] [place] [address] Care Team Providers Care Tracing Lathe Set Up Operator Name Role Phone Pantera Lane MD Primary Care Provider [phone] Allergies Active Allergy Reactions Criticality Noted Date Comments Codeine Nausea and Vomiting Low 04/20/2018 Morphine Nausea and Vomiting Low Medications ALPRAZolam (XANAX) 0.25 mg tablet Take 0.25 mg by mouth. 08/30/2017 Active ibuprofen (MOTRIN) 200 mg tablet Take 200 mg by mouth. 08/30/2017 Active lisinopril (PRINIVIL) 10 mg tablet Take 10 mg by mouth. 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 11/15/2018 Absence of right breast 11/15/2018 Trigger point 11/15/2018 Excessive skin and subcutaneous tissue 8 Muscle spasm 04/20/2018 Aromatase inhibitor use 04/20/2018 Malignant neoplasm of overla pping sites of right breast in female, estrogen receptor positive 04/20/2018 History of antineoplastic chemotherapy 8 History of external beam radiation therapy 04/20 Resolved Problems Problem Noted Date Diagnosed Date Resolved Date Microcalcification of left b reast on mammogram 04/20/2018 11/15/2018 Estrogen receptor positive 04/20/2018 0 11/15/2018 Social History Tobacco Use Types Packs/Day Years Used Date Smoking Tobacco: Never Smokeless Tobacco: Never Alcohol Use Standard Drinks/Week Comments Yes 2 (1 standard drink = 0.6 oz pur e alcohol) Comments No Sex and Gender Information Value Date Recorded Sex Assigned at Not on file Legal Sex Female 3:03 PM CDT Gender Identity Not on file Sexual Orientation Not on file Last Filed Vital Signs Vital Sign Reading Time Taken Comments Blood Pressure 127/49 04/27/2019 9:42 AM CDT Pulse 66 04/27/2019 9:42 AM CDT Temperature 36.6 C (97.8 F) 04/27/2019 9:42 AM CDT Respiratory Rate - - Oxygen Saturation 97% 04/27/2019 9:42 AM CDT Inhaled Oxygen Concentration - - Weight 64.1 kg (141 lb 6.4 oz) 04/27/2019 9:42 A M CDT Height 165.1 cm (5' 5) 04/27/2019 9:42 AM CDT Body Mass Index 23.53 04/27/2019 9:42 AM CDT Plan of Treatment Health Maintenance Due Date Last Done Comments DTAP/TDAP/TD VACCINES (1 - Tdap) 1955 PNEUMOCOCCAL VACCINE 50+ YEARS (1 of 1 - PCV) 11/04/18 87 ZOSTER VACCINE (1 of 2) 1986 OSTEOPOROSIS SCREENING 2001 RSV VACCINE (60+ or ) (1 - 1-dose 75+ series) 2011 INFLUENZA VACCINE (#1) 2025 Insurance [facility] [place] Address: [address] [address] Care Teams Tracing Lathe Set Up Operator Relationship Specialty Start Date End Date Pantera Lane MD [address] [facility] [address] [place] [id number] PCP - General Family Practice 04/20/18
--- OUTSIDE RECORDS SUMMARY | 2025-04-11 12:21 | XMS_ITS | Referral Summary ---
Author Organization [facility] 8 [facility] Address [address] [facility] [address] [place] [address] Phone Care Team Providers Care Quarry Extraction Worker Name Role Phone Pantera Lane MD Primary Care Provider Deborah Lopez AIR TABLE OPERATOR Unavailable [phone] Allergies Active Allergy Reactions Criticality Noted Date [...] SARS-CoV-2 Monovalent Vaccination (12+ Yrs) PURPLE 12/22/2020,11/24/2020 Social History Tobacco Use Types Packs/Day Years Used Date Smoking Tobacco: Never Smokeless Tobacco: Never Alcohol Use Standard Drinks/Week Comments Yes 0 (1 standard drink = 0.6 oz pur e alcohol) Comments Unknown Sex and Gender Information Value Date Recorded Sex Assigned at Not on file 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
[2025-04-11 13:01] LABS: Alanine Aminotransferase 19 U/L (6-35); Albumin Level 4.0 g/dL (3.5-5.1); Alkaline Phosphatase 70 U/L (38-126); Anion Gap 7 mmol/L (4-12); Aspartate Amino Transferase 36 U/L (14-36); Bilirubin,Total 0.9 mg/dL (0.2-1.3); Blood Urea Nitrogen 13 mg/dL (7-17); Calcium 9.8 mg/dL (8.4-10.2); Carbon Dioxide 24 mmol/L (22-30); Chloride 103 mmol/L (98-107); Estimated Glomerular Filt Rate > 60; Glucose 169 mg/dL (65-110); Potassium 4.6 mmol/L (3.4-5.0); Sodium 134 mmol/L (137-145); Total Protein 7.1 g/dL (6.3-8.2)
[2025-04-11 13:43] LABS: Hemoglobin A1C 5.9 % (<5.7)
== END 2025-04-11 12:19 | disposition home or self-care (01) ==
LOC: ANHLAB 12:19
PROVIDERS: PCP Family Medicine; Visit Provider Family Medicine
DX: E11.9 Type 2 diabetes mellitus without complications (principal); I10 Essential (primary) hypertension
CPT/HCPCS: 36415; 80053; 83036

== ENCOUNTER 2025-08-09 02:04 | Emergency (ER) | payer OTHER, SELFPAY ==
[2025-08-09] VITALS (11 sets, daily range): BP systolic 107–164; BP diastolic 47–76; PULSE 72–87; RESP 15–26; TEMP 36.8–37.7; O2SAT 20–99
--- NOTE | ~2025-08-09 | CT_ITS ---
EXAM/PROCEDURE: CT abdomen pelvis w con HISTORY: suprapubic abd pain; hematuria; UTI COMPARISON: 08/14/2024 TECHNIQUE: Contrast-enhanced CT examination of the abdomen and pelvis performed. NOTE: The pelvis in the lower portions is significantly obscured due to bilateral total hip arthroplasty hardware and associated beam hardening/streak artifact. FINDINGS: Old infarction right kidney. Small to moderate right extrarenal pelvis and borderline right-sided hydronephrosis but no obstructing ureteral stones seen. The urinary bladder nondistended, and is also very poorly visualized due to extensive artifact in the lower pelvis. The bowel gas pattern is nonobstructive with no free air or pneumatosis seen. Trace amount of free fluid may be present in the lower pelvis. The large intestine is not fully evaluated, unopacified and nondistended. Moderate to severe diverticular disease present especially in the left hemicolon with no definite acute diverticulitis. Cholelithiasis with no gross CT evidence of acute cholecystitis. No AAA. No gross acute arterial occlusion. Pancreas spleen stomach and liver appear stable. Lung bases are clear. Heart size upper limits normal. Bulky mitral annular calcification and coronary artery calcifications noted. Diffuse degenerative changes in the bones which otherwise appear intact. 2.2 x 1.8 cm right hemipelvic soft tissue mass appears to correspond to the right gonadal vein possibly associated thrombosis. Similar in appearance to the previous exam. No grossly inflamed appendix seen. IMPRESSION: 1. Borderline hydronephrosis of the right kidney versus prominent extrarenal pelvis; no obstructing ureteral stones. 2. Moderate to severe diverticular disease with no gross acute diverticulitis. 3. Several chronic findings. 4. Exam of the lower pelvis is significantly limited as noted above. Reviewed, dictated and finalized at location A. [facility] [employer] IMPRESSION: 1. Borderline hydronephrosis of the right kidney versus prominent extrarenal pe lvis; no obstructing ureteral stones. 2. Moderate to severe diverticular disease with no gross acute diverticulitis. 3. Several chronic findings. 4. Exam of the lower pelvis is significantly limited as noted above.
[2025-08-09 03:20] LABS: Add Urine Microscopic? YES; Appearance Urine Turbid (Clear); Glucose Urine UA Negative (Negative); Leukocyte Esterase Ur 3+ LEU/UL (Negative); Need Manual Microscopic Reviewed; Nitrate Urine Positive (Negative); Specific Grav Ur 1.015 (1.001-1.035)
[2025-08-09 05:19] LABS: Hematocrit 44.6 % (37.0-47.0); Hemoglobin 15.4 g/dL (12.0-15.0); Immature Granulocyte Percent A 0.5 % (0-0.5); Lymphocytes Absolute Auto 1.69 K/mm3 (0.9-3.2); Mean Corpuscular HGB Conc 34.5 g/dl (32-36); Mean Corpuscular Hemoglobin 33.6 pg (26-34); Mean Corpuscular Volume 97.4 fl (80-100); Nucleated Red Blood Cells Absolute Auto 0.000 K/mm3 (0.0-0.012); Nucleated Red Blood Cells Perc 0.0 % (0.0-0.2); Platelet Count Result 203 k/mm3 (150-375); Red Blood Count 4.58 M/mm3 (4.2-5.4); White Blood Count 13.5 K/mm3 (4.5-10.0)
--- NOTE | 2025-08-09 05:29 | PC.NURSE ---
pt ambulatory to bathroom with steady gait
[2025-08-09 05:30] LABS: Alanine Aminotransferase 21 U/L (6-35); Albumin Level 4.4 g/dL (3.5-5.1); Alkaline Phosphatase 69 U/L (38-126); Anion Gap 9 mmol/L (4-12); Aspartate Amino Transferase 32 U/L (14-36); Bilirubin,Total 1.7 mg/dL (0.2-1.3); Blood Urea Nitrogen 14 mg/dL (7-17); Calcium 9.5 mg/dL (8.4-10.2); Carbon Dioxide 22 mmol/L (22-30); Chloride 102 mmol/L (98-107); Estimated CRCL calculation 35 ml/min; Estimated Glomerular Filt Rate > 60; Glucose 152 mg/dL (65-110); Potassium 4.2 mmol/L (3.4-5.0); Sodium 133 mmol/L (137-145); Total Protein 7.7 g/dL (6.3-8.2)
--- NOTE | 2025-08-09 06:19 | ED.FEMALEGU ---
HPI - Female Genitourinary General Chief complaint: Urogenital-Female Stated complaint: blood in urine Time Seen by Provider: 08/09/25 06:04 Source: patient and family (son Jamey) Mode of arrival: ambulatory Limitations: no limitations History of Present Illness HPI Narrative: Patient presents with blood in her urine all day. Also having pain across her low abdomen/pelvis. Denies previous UTI. LBM 2 days ago. Has a pressure, feeling like she has to go. No flank pain. No fever but chills. Had a partial hysterectomy done vaginally, no prior abdominal surgery. Not on anticoagulation. No dysuria. Having urgency and frequency. On lisinopril and Xanax PRN. Pain 8-10 out of 10 in severity. Uses Aleve PRN. Has trouble with pills, can't swallow and has to crush them. 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 History of breast cancer Essential (primary) hypertension HLD (hyperlipidemia) Pure hypercholesterolemia Type 2 diabetes mellitus without complications Surgical History Surgical History History of partial hysterectomy performed vaginally Presence of artificial hip joint, bilateral Family History Family History Other Unknown family medical history Social History Social History Smoking status: Never smoker Second hand tobacco smoke exposure: No Alcohol intake: current Drinks per week: 10 Substance use: never Substance use type: does not use Do You Feel Safe in your Home?: Yes Lack of Transportation: No Lack of Food: Never True Current Housing: I Have Housing Concerned About Future Housing: No Difficulty Paying Gas/Electric Bills: No Difficulty Paying for Meds: No Currently Unemployed: No Education: High School Diploma/GED Difficulty w/ Childcare or Family Care: No Living arrangements: with family Occupation/Education: retired Gender identity (if verbalized by the patient): Female Sexual Orientation (if Verbalized by the Patient): Straight or Heterosexual Spiritual care concerns: No Exam Narrative: GENERAL: Well-appearing, well-nourished, and in no acute distress. HEAD: Normocephalic, atraumatic. EYES: Non injected, non icteric ENT: Nares clear, no rhinorrhea or epistaxis. Gross auditory acuity intact. NECK: Supple. No meningismus. CHEST: Speaking in full sentences. No respiratory distress. HEART: Regular rate and rhythm. . ABDOMEN: Soft, nondistended. No rigidity or guarding. Not peritoneal. Mild TTP suprapubic and RLQ. EXTREMITIES: Normal range of motion. No lower extremity edema. SKIN: Warm, dry, no rash. NEURO: No focal deficits. Alert and oriented. Answering questions. Following commands. Normal speech without aphasia or dysarthria. PSYCH: Normal mood and affect. Course Vital Signs Vital signs: Vital Signs Temperature 98.2 F 08/09/25 02:07 Pulse Rate 87 08/09/25 02:07 Respiratory Rate 20 08/09/25 02:07 Blood Pressure 150/74 H 08/09/25 02:07 Pulse Oximetry 99 08/09/25 02:07 Oxygen Delivery Room Air 08/09/25 02:07 Temperature 99.8 F H 08/09/25 05:13 Pulse Rate 72 08/09/25 08:33 Respiratory Rate 20 08/09/25 08:33 Blood Pressure 107/47 L 08/09/25 08:33 Pulse Oximetry 95 08/09/25 08:33 Oxygen Delivery Room Air 08/09/25 02:07 MDM - Female Genitourinary MDM Narrative Medical decision making narrative: Patient presents with hematuria all day. Also having urgency/frequency and low abdominal pain. In the emergency department she is afebrile vital signs notable for hypertension. Her temperature does climb a bit, 99.8 while in the ED. Acetaminophen ordered. She has evidence of urinary tract infection with multiple indices for this including hematuria. Previous culture had not grown any organism. Current culture in process. Will give ceftriaxone. Leukocytosis. CT as below. Discharged with Rx for a cephalosporin. Differential Diagnosis Differential diagnosis: Likely urinary tract infection and other (constipation; coagulopathy; malginancy; appendicitis; epiploic appendigitis) Lab Data Attestation: I reviewed the patient's lab results. 08/09/25 05:11 08/09/25 05:11 Labs: Lab Results 08/09/25 08/09/25 Range/Units 03:00 05:11 WBC 13.5 H (4.5-10.0) K/mm3 RBC 4.58 (4.2-5.4) M/mm3 Hgb 15.4 H (12.0-15.0) g/dL Hct 44.6 (37.0-47.0) % MCV 97.4 (80-100) fl MCH 33.6 (26-34) pg MCHC 34.5 (32-36) g/dl RDW 13.5 (11.5-14.5) % Plt Count 203 (150-375) k/mm3 MPV 9.3 (7.4-10.4) fl Immature Gran % (Auto) 0.5 (0-0.5) % Neut % (Auto) 77.9 H (45.5-73.1) % Lymph % (Auto) 12.6 L (18.3-44.2) % [place] % (Auto) 8.3 (2.6-8.5) % Eos % (Auto) 0.4 (0-4.4) % Baso % (Auto) 0.3 (0.2-1.2) % Lymph # (Auto) 1.69 (0.9-3.2) K/mm3 [place] # (Auto) 1.1 H (0.1-0.6) K/mm3 Eos # (Auto) 0.1 (0-0.3) K/mm3 Baso # (Auto) 0.0 (0.0-0.1) K/mm3 Abs Immat Gran (auto) 0.07 H (0.00-0.031) K/mm3 Absolute Neuts (auto) 10.5 H (1.3-6.7) K/mm3 Absolute Nucleated RBC 0.000 (0.0-0.012) K/mm3 Nucleated RBC % 0.0 (0.0-0.2) % Sodium 133 L (137-145) mmol/L Potassium 4.2 (3.4-5.0) mmol/L Chloride 102 (98-107) mmol/L Carbon Dioxide 22 (22-30) mmol/L Anion Gap 9 (4-12) mmol/L BUN 14 (7-17) mg/dL Creatinine 0.85 (0.7-1.0) mg/dL Estim Creat Clear Calc 35 ml/min Estimated GFR > 60 (59 - ) Glucose 152 H (65-110) mg/dL Calcium 9.5 (8.4-10.2) mg/dL Total Bilirubin 1.7 H (0.2-1.3) mg/dL AST 32 (14-36) U/L ALT 21 (6-35) U/L Alkaline Phosphatase 69 (38-126) U/L Total Protein 7.7 (6.3-8.2) g/dL Albumin 4.4 (3.5-5.1) g/dL Urine Color [place] H (Yellow) Urine Appearance Turbid H (Clear) Urine pH 6.5 (5.0-9.0) Ur Specific [place] 1.015 (1.001-1.035) Urine Protein 3+ H (Negative) mg/dL Urine Glucose (UA) Negative (Negative) mg/dL Urine Ketones 2+ H (Negative) mg/dL Ur Blood (Man) 3+ H (Negative) Urine Nitrate Positive H (Negative) Urine Bilirubin Negative (Negative) Urine Urobilinogen 1.0 (<2.0) mg/dL Add Ur Microanalysis Reviewed Leukocyte Esterase Rfl 3+ H (Negative) VALERIA/UL Urine RBC >100 H (0-2) /hpf Urine WBC >100 H (0-3) /hpf Ur Squamous Epith Cells None seen (Few) /hpf Urine Bacteria 2+ H /hpf Urine Casts 6-10 Urine Mucus Present /lpf Imaging Data Radiologist's impression: Impressions Abdomen/Pelvis CT 08/09/25 07:57 IMPRESSION: 1. Borderline hydronephrosis of the right kidney versus prominent extrarenal pelvis; no obstructing ureteral stones. 2. Moderate to severe diverticular disease with no gross acute diverticulitis. 3. Several chronic findings. 4. Exam of the lower pelvis is significantly limited as noted above. 2.2 x 1.8 cm right hemipelvic soft tissue mass appears to correspond to the right gonadal vein possibly associated thrombosis. Similar in appearance to the previous exam. Discharge Plan Discharge Clinical Impression: UTI (urinary tract infection), Hematuria, Leukocytosis, Diverticulosis of colon, Mass of soft tissue of pelvis Patient Disposition: Home Condition: Stable Instructions: Antibiotic Form, Diverticulosis (ED), Hematuria (ED), Leukocytosis (ED), Urinary Tract Infection in Older Adults (ED) Additional Instructions: As we discussed, you have a urinary tract infection. You received your 1st dose of antibiotic in the emergency department the rest of the course has been prescribed. This is casuing your low abdominal pain /pressure and blood in your urine. Follow-up with your primary care physician. Return to the emergency department any new or worsening symptoms You have a borderline enlarged kidney. Can follow up with urology if desired - name listed below. You also have a soft tissue mass in the right side of your pelvis but this appears stable from previous imaging. Patient Language: Citizen Of [place] Prescriptions: New cephalexin 500 mg tablet 500 mg PO Q8H 5 Days Qty: 15 0RF No Action metronidazole 500 mg tablet 500 mg PO BID polyethylene glycol 3350 [Miralax] 17 gram Powder In Packet 17 g PO QAM Qty: 12 0RF hydrocodone-acetaminophen 5-325 mg Tablet 1 tablet PO Q4H PRN (Reason: Pain Rated 4-6) Qty: 12 0RF docusate sodium [Colace] 100 mg capsule 100 mg PO DAILY Qty: 20 0RF lisinopril 10 mg tablet See Rx Instructions .ROUTE .COMPLEX Qty: 90 2RF Dose Instruction: TAKE 1 TABLET BY MOUTH DAILY Rx Instructions: TAKE 1 TABLET BY MOUTH DAILY alprazolam [Xanax] 0.25 mg tablet 0.25 mg PO TID PRN (Reason: anxiety) Qty: 30 0RF Follow-up/Referrals: Pantera Lane MD [Primary Care Provider, Family Practice] Casi Cesar MD [Physician, Urology] Time of Disposition: 08:16
[2025-08-09] MEDS: cefTRIAXone 1 GM in SODIUM CHLORIDE 0.9% IV 50 ML 100 ML IVPB (06:36)
[2025-08-09] MEDS: ACETAMINOPHEN 325 MG TABLET 650 MG PO (06:40)
== END 2025-08-09 08:37 | disposition home or self-care (01) ==
PROVIDERS: Emergency Provider Student in an Organized Health Care Education/Training Program; PCP Family Medicine
DX: N39.0 Urinary tract infection, site not specified (principal); R31.9 Hematuria, unspecified; K57.90 Diverticulosis of intestine, part unspecified, without perforation or abscess without bleeding; M79.9 Soft tissue disorder, unspecified; D72.829 Elevated white blood cell count, unspecified; I10 Essential (primary) hypertension; E78.00 Pure hypercholesterolemia, unspecified; E11.9 Type 2 diabetes mellitus without complications; M19.012 Primary osteoarthritis, left shoulder; M19.011 Primary osteoarthritis, right shoulder; Z96.643 Presence of artificial hip joint, bilateral; Z85.3 Personal history of malignant neoplasm of breast; Z90.711 Acquired absence of uterus with remaining cervical stump; R93.421 Abnormal radiologic findings on diagnostic imaging of right kidney; Z79.899 Other long term (current) drug therapy
CPT/HCPCS: 36415; 74177; 80053; 81001; 85025; 87086; 87186; 96365; 99284; A9270; J0696; Q9967

== ENCOUNTER 2025-09-04 11:17 | Outpatient (CLI) | payer OTHER, SELFPAY ==
[2025-09-04 11:52] LABS: Hematocrit 42.5 % (37.0-47.0); Hemoglobin 14.2 g/dL (12.0-15.0); Mean Corpuscular HGB Conc 33.4 g/dl (32-36); Mean Corpuscular Hemoglobin 32.9 pg (26-34); Mean Corpuscular Volume 98.4 fl (80-100); Platelet Count Result 239 k/mm3 (150-375); Red Blood Count 4.32 M/mm3 (4.2-5.4); White Blood Count 6.9 K/mm3 (4.5-10.0)
[2025-09-04 12:02] LABS: Hemoglobin A1C 6.0 % (<5.7)
[2025-09-04 12:12] LABS: Alanine Aminotransferase 24 U/L (6-35); Albumin Level 4.2 g/dL (3.5-5.1); Alkaline Phosphatase 62 U/L (38-126); Anion Gap 6 mmol/L (4-12); Aspartate Amino Transferase 31 U/L (14-36); Bilirubin,Total 0.8 mg/dL (0.2-1.3); Blood Urea Nitrogen 14 mg/dL (7-17); Calcium 10.4 mg/dL (8.4-10.2); Carbon Dioxide 27 mmol/L (22-30); Chloride 102 mmol/L (98-107); Estimated Glomerular Filt Rate 56; Glucose 168 mg/dL (65-110); Potassium 4.1 mmol/L (3.4-5.0); Sodium 135 mmol/L (137-145); Total Protein 7.3 g/dL (6.3-8.2)
[2025-09-04 12:22] LABS: Add Urine Microscopic? YES; Appearance Urine Cloudy (Clear); Glucose Urine UA Negative (Negative); Leukocyte Esterase Ur 2+ LEU/UL (Negative); Nitrate Urine Negative (Negative); Specific Grav Ur 1.012 (1.001-1.035)
[2025-09-04 12:48] LABS: Thyroid Stimulating Hormone 1.390 uIU/mL (0.465-4.680)
[2025-09-04 16:43] LABS: MALB Creatinine Ratio 33.5 mg/g (0-30)
== END 2025-09-04 11:18 | disposition home or self-care (01) ==
LOC: ANHLAB 11:18
PROVIDERS: PCP Family Medicine; Visit Provider Family Medicine
DX: E78.5 Hyperlipidemia, unspecified (principal); E11.9 Type 2 diabetes mellitus without complications; I10 Essential (primary) hypertension; R53.83 Other fatigue
CPT/HCPCS: 36415; 80053; 81001; 82043; 83036; 84443; 85027